=== PATIENT | female | born 1945 | race Caucasian/White ===

== ENCOUNTER 2018-04-20 13:48 | Emergency (ER) | payer MEDICARE, BC ==
[2018-04-20 14:13] LABS: #Lymphocytes 1.2 thou/uL (1.20-3.40); #Monocytes 0.4 thou/uL (0.11-0.59); %Basophils 0.7 % (0.0-1.0); %Eosinophils 0.8 % (0.0-10.0); %Lymphocytes 20.9 % (21.0-51.0); %Neutrophils 70.7 % (42.0-75.0); Hemoglobin 13.9 g/dL (12.0-16.0); Mean Corpuscular HGB CONC 32.3 g/dL (32.0-36.0); Mean Corpuscular Hemoglobin 29.8 pg (27.0-31.0); Mean Corpuscular Volume 92.1 fL (78.0-98.0); Mean Platelet Volume 7.8 fL (7.4-10.4); Platelet Count 137 thou/uL (130-400); RBC Distribution Width 11.5 % (11.5-14.5); Red Blood Cell (RBC) Count 4.67 mill/uL (4.20-5.40); White Blood Cell (WBC) Count 5.7 thou/uL (4.8-10.8)
[2018-04-20 14:29] LABS: ALT (SGPT) 20 U/L (8-55); AST (SGOT) 18 U/L (5-34); Albumin 4.3 g/dL (3.4-4.8); Alkaline Phosphatase 61 U/L (40-150); Anion Gap 14 mmol/L (10-20); BUN (Urea Nitrogen) 16 mg/dL (9.8-20.1); Bilirubin, Total 0.2 mg/dL (0.2-1.2); CK (CPK) 79 U/L (29-168); CKMB 1.8 ng/mL (0-6.6); Calc. Creatinine Clearance 0 mL/min (70-130); Calcium 9.3 mg/dL (7.8-10.44); Carbon Dioxide 26 mmol/L (23-31); Chloride 104 mmol/L (98-107); Estimated GFR-MDRD 82; Globulin 2.9 g/dL (2.4-3.5); Glucose 166 mg/dL (83-110); Lipase 20 U/L (8-78); Potassium 4.3 mmol/L (3.5-5.1); Protein, Total 7.2 g/dL (6.0-8.3); Sodium 140 mmol/L (136-145); Troponin I Less than 0.010 ng/mL (< 0.028)
--- NOTE | 2018-04-20 14:37 | CT ---
HEAD CT WITHOUT CONTRAST: Date: 04/20/18 HISTORY: Syncope. COMPARISON: None. TECHNIQUE: Noncontrast head CT is performed from skull base to skull vertex. FINDINGS: No parenchymal hemorrhage. No extra-axial hematoma. No midline shift. Basilar cisterns are patent. Br ain volume, age-appropriate. Cortical seals-white matter differentiation preserved. Ventricles and sul ci are patent and symmetric. Minimal chronic small vessel ischemic changes of white matter. Hypoatten uation involving the right caudate nucleus due to remote lacunar infarct. Calvarium is intact. Adequa te aeration of the sinuses and mastoid air cells. Cavernous carotid atherosclerosis is noted. IMPRESSION: No acute intracranial process. POS: [facility]
[2018-04-20] MEDS ORDERED: Ondansetron HCl/PF 4 MG/2 ML Vial ONE (14:39)
[2018-04-20] MEDS ORDERED: Meclizine HCl 25 MG TAB ONE (14:39)
[2018-04-20] MEDS ORDERED: Ketorolac Tromethamine 30 MG/ML VIAL ONE (14:39)
--- NOTE | 2018-04-20 14:39 | RAD ---
CHEST 1 VIEW: Date: 04/20/18 HISTORY: Pain. FINDINGS: Slight elongation of aorta. Normal cardiac silhouette. Pulmonary vessels and hilum are normal. No con solidation or mass. No pneumothorax or osseous abnormalities. Calcified granuloma in left lung base. IMPRESSION: No acute cardiopulmonary process. POS: [facility]
[2018-04-20 15:31] LABS: Bilirubin Negative (Negative); Blood, Urine Small (Negative); Glucose, Urine (Dipstick) Negative (Negative); Leukocyte Negative (Negative); Nitrite Negative (Negative); Protein, Urine (Dipstick) 30 mg/dL (Neg-Trace); Urobilinogen 0.2 mg/dL (0.2-1.0); pH, Urine 5.5 (5.0-9.0)
[2018-04-20 15:35] LABS: Clarity Hazy (Clear); Specific Gravity, Urine 1.026 (1.002-1.036)
[2018-04-20 15:39] LABS: Bacteria/HPF 1+ HPF (None Seen); WBC/HPF None Seen HPF (0-3)
[2018-04-20] MEDS ORDERED: Diazepam 5 MG TAB ONE (15:46)
== END 2018-04-20 16:34 | disposition home or self-care (01) ==
LOC: SCSER 13:48
DX: H81.13 Benign paroxysmal vertigo, bilateral (principal); L03.119 Cellulitis of unspecified part of limb; I25.2 Old myocardial infarction; I25.10 Atherosclerotic heart disease of native coronary artery without angina pectoris; F32.9 Major depressive disorder, single episode, unspecified
CPT/HCPCS: 70450; 71045; 80053; 81003; 81015; 82553; 83605; 83690; 84484; 85025; 87804; 93005; 96361; 96374; 96375; J1885; J2405

== ENCOUNTER 2019-01-28 12:40 | Inpatient (IN) | payer MEDICARE, BC ==
--- NOTE | 2019-01-28 14:52 | HP ---
HISTORY OF PRESENT ILLNESS: Ms. Salazar is a very pleasant 73-year-old woman who was admitted to the [facility] with chest pain and non-ST elevation myocardial infarction. She had a peak troponin of 0.33. She had no ST changes on her EKG. She has history of coronary artery disease status post multivessel stenting in 2010 after suffering a myocardial infarction. She has been followed by Dr. German since that time. She was admitted by Dr. Munoz and underwent cardiac catheterization today. Her last ventricular evaluation prior to admission was in 2011. The echo showing an ejection fraction of 60%. Catheterization today showing severe three-vessel disease involving the right coronary, LAD, and ramus intermedius. Bypassable targets included LAD, ramus intermedius, and distal right coronary artery. She is being transferred to Health system for coronary artery bypass grafting. PAST MEDICAL HISTORY: 1. Coronary artery disease, status post multivessel stenting in 2010. 2. Hypertension. 3. Dyslipidemia. 4. Mild obesity. 5. Anxiety. PAST SURGICAL HISTORY: 1. Appendectomy. 2. Hysterectomy. 3. Cataract removal. 4. Multivessel stenting involving the posterior lateral branch of the right coronary artery, circumflex coronary artery, and LAD in 2010. OUTPATIENT MEDICATIONS: 1. Aspirin 81 mg daily. 2. Zetia 10 mg at bedtime. 3. [place]-3 120 mg b.i.d. 4. Metoprolol tartrate 25 mg one q.a.m. 5. Diovan 80 mg daily. 6. Isosorbide mononitrate 30 mg daily. 7. Citalopram 20 mg daily. 8. CoQ10 200 mg daily. ALLERGIES: 1. PENICILLIN. 2. TETANUS. 3. LIVALO. THE PATIENT HAS HAD A COUGH REACTION TO LISINOPRIL IN THE PAST AND ALSO HAS HAD HEADACHE AND OTHER NON-MYALGIA TYPE REACTIONS TO SIMVASTATIN AND LIPITOR-INTERESTINGLY, SHE HAS BEEN ON LIPITOR SINCE ADMISSION IN THE HOSPITAL WITHOUT ANY ISSUE. REVIEW OF SYSTEMS: A 10-point review of systems is performed, is negative except as above. PHYSICAL EXAMINATION: GENERAL: This is moderately obese woman resting comfortably in bed. VITAL SIGNS: Height 5 feet 4 inches, weight 164 pounds. Pulse is 70 and regular. Blood pressure is 138/72, oxygen saturations 100% on room air. HEENT: Sclerae nonicteric. Pupils are equal and round bilaterally. NECK: Supple without bruit. CHEST: Clear bilaterally. HEART: Rhythm is regular without murmur. ABDOMEN: Soft and nontender. EXTREMITIES: No edema. VASCULAR: She has palpable carotid, radial, and femoral pulses bilaterally. Her left dorsalis and posterior tibial pulses are palpable and her right are dopplerable. ASSESSMENT AND PLAN: A 73-year-old woman with history of previous coronary event resulting in multivessel stenting, who re-presented with [id number] myocardial infarction. Previous ventricular evaluations have shown normal ventricular function. Coronary angiography today shows severe three-vessel disease with bypassable LAD, ramus, and distal right coronary targets. Risks, benefits, and options of coronary artery bypass grafting have been described to the patient and she is agreeable for transfer to Health system and to see Dr. Ellis in regard to surgery possibly on Monday. We will arrange for transfer and make plans from there. Job ID: [id number]
[2019-01-28 20:26] LABS: #Eosinphils 0.1 thou/uL (0.0-0.7); #Lymphocytes 2.1 thou/uL (1.20-3.40); #Monocytes 0.4 thou/uL (0.11-0.59); #Neutrophils 2.4 thou/uL (1.40-6.50); %Basophils 0.4 % (0.0-1.0); %Eosinophils 1.7 % (0.0-10.0); %Lymphocytes 42.2 % (21.0-51.0); %Monocytes 7.2 % (0.0-10.0); %Neutrophils 48.5 % (42.0-75.0); Hemoglobin 12.3 g/dL (12.0-16.0); Mean Corpuscular HGB CONC 33.4 g/dL (32.0-36.0); Mean Corpuscular Hemoglobin 31.7 pg (27.0-31.0); Mean Corpuscular Volume 94.9 fL (78.0-98.0); Mean Platelet Volume 7.7 fL (7.4-10.4); Platelet Count 141 thou/uL (130-400); RBC Distribution Width 10.8 % (11.5-14.5); Red Blood Cell (RBC) Count 3.88 mill/uL (4.20-5.40)
[2019-01-28 20:47] LABS: Anion Gap 13 mmol/L (10-20); BUN (Urea Nitrogen) 13 mg/dL (9.8-20.1); Calc. Creatinine Clearance 0 mL/min (70-130); Calcium 9.1 mg/dL (7.8-10.44); Carbon Dioxide 28 mmol/L (23-31); Chloride 104 mmol/L (98-107); Estimated GFR-MDRD 78; Glucose 140 mg/dL (83-110); Potassium 3.5 mmol/L (3.5-5.1); Sodium 141 mmol/L (136-145)
[2019-01-28] MEDS ORDERED: Ezetimibe 10 MG TAB PO SCH (23:15)
[2019-01-28] MEDS ORDERED: Metoprolol Tartrate 25 MG TAB PO SCH (23:15)
[2019-01-28] MEDS ORDERED: Atorvastatin Calcium 10 MG TAB PO SCH (23:15)
[2019-01-29] MEDS ORDERED: Norepinephrine 4 MG/4 ML VIAL ONE (05:58)
[2019-01-29] MEDS ORDERED: Fentanyl 250 MCG/5 ML VIAL ONE (05:58)
[2019-01-29] MEDS ORDERED: Nitroglycerin 50 MG/250 ML BOT 250 ML ONE (05:58)
[2019-01-29] MEDS ORDERED: Albumin 5% 0 ML ONE (06:29)
[2019-01-29] MEDS ORDERED: Vancomycin HCl 1 GM in Premix Bag 1 BAG IVPB SCH (06:45)
[2019-01-29] MEDS ORDERED: Heparin 10,000 UNITS/1 ML VIAL 30,000 UNITS in Sodium Chloride 0.9% 1,000 ML FS SCH (07:00)
[2019-01-29] MEDS ORDERED: Midazolam HCl 2 mg/2 ml Vial ONE (07:14)
[2019-01-29] MEDS ORDERED: Losartan 25 MG TAB PO SCH (09:00)
[2019-01-29] MEDS ORDERED: Metoprolol Tartrate 25 MG TAB PO SCH (09:00)
[2019-01-29] MEDS ORDERED: Insulin Regular 300 UNITS/3 ML VIAL ONE (09:50)
[2019-01-29] MEDS ORDERED: Vancomycin HCl 500 MG in Sodium Chloride 0.9% 100 ML IVPB SCH (10:00)
[2019-01-29] MEDS ORDERED: Nitroglycerin 50 MG/250 ML BOT 250 ML IVPB PRN (10:47)
[2019-01-29] MEDS ORDERED: Fentanyl 100 MCG/2 ML VIAL SLOW IVP PRN (10:47)
[2019-01-29] MEDS ORDERED: Promethazine HCl 25 MG/ML VIAL IM PRN (10:47)
[2019-01-29] MEDS ORDERED: hydrALAZINE 20 MG/ML VIAL SLOW IVP PRN (10:47)
[2019-01-29] MEDS ORDERED: Bisacodyl 10 MG SUPP PR PRN (10:47)
[2019-01-29] MEDS ORDERED: niCARdipine 25 MG in Sodium Chloride 0.9% 250 ML 250 ML IVPB PRN (10:47)
[2019-01-29] MEDS ORDERED: Acetaminophen 325 MG TAB PO PRN (10:47)
[2019-01-29] MEDS ORDERED: Morphine 2 MG/ML SYRINGE SLOW IVP PRN (10:47)
[2019-01-29] MEDS ORDERED: Post-Op Insulin Drip Protocol IVPB ONE (10:47)
[2019-01-29] MEDS ORDERED: Mag-Al 1200 mg/1200 mg/30 ML UDCUP PO PRN (10:47)
[2019-01-29] MEDS ORDERED: Guaifenesin DM 100-10/5 ML UDCUP PO PRN (10:47)
[2019-01-29] MEDS ORDERED: Bisacodyl 5 MG TAB PO PRN (10:47)
[2019-01-29] MEDS ORDERED: Hetastarch 6% 500 ML 500 ML IVPB PRN (10:47)
[2019-01-29] MEDS ORDERED: Ondansetron PF 4 MG/2 ML Vial IVP PRN (10:47)
[2019-01-29] MEDS ORDERED: Norepinephrine 8 MG/0.9% NS 250 ML IVPB PRN (10:47)
[2019-01-29] MEDS ORDERED: Insulin Regular 300 UNITS/3 ML VIAL SC PRN (12:16)
[2019-01-29] MEDS ORDERED: HUMULIN R 100 UNITS in Sodium Chloride 0.9% 100 ML IVPB SCH (12:16)
[2019-01-29] MEDS ORDERED: Dextrose 5% in Water 1,000 ML IV PRN (12:16)
[2019-01-29] MEDS ORDERED: Dextrose 50% Abboject 50 ML SYRINGE SLOW IVP PRN (12:16)
[2019-01-29] MEDS ORDERED: Midazolam HCl 5 mg/5 ml Vial ONE (12:26)
[2019-01-29 12:52] LABS: Base Excess (BEa) -1.4 mEq/L (-2.0 to +3.0); CO2 Tension 37.1 mmHg (35.0-45.0); Calcium, Ionized 1.05 mmol/L (1.12-1.30); Carboxyhemoglobin (COHb) 0.3 gm% (0.0-3.0); Hemoglobin (Hb) 10.2 g/dL (12.0-16.0); O2 Tension (PaO2) 120.8 mmHg (> 70.0); Potassium - ABG Lab 3.61 mmol/L (3.70-5.30); pH, Arterial 7.41 (7.35-7.45)
[2019-01-29 12:54] LABS: ALV-art Gradient 189.325 (0-20); Puncture Site ALINE
[2019-01-29 12:59] LABS: #Lymphocytes 2.2 thou/uL (1.20-3.40); #Monocytes 0.7 thou/uL (0.11-0.59); #Neutrophils 8.7 thou/uL (1.40-6.50); %Basophils 0.3 % (0.0-1.0); %Eosinophils 0.4 % (0.0-10.0); %Lymphocytes 18.6 % (21.0-51.0); %Neutrophils 74.8 % (42.0-75.0); Hemoglobin 9.8 g/dL (12.0-16.0); Mean Corpuscular Hemoglobin 31.4 pg (27.0-31.0); Mean Corpuscular Volume 92.2 fL (78.0-98.0); Mean Platelet Volume 7.4 fL (7.4-10.4); Platelet Count 133 thou/uL (130-400); RBC Distribution Width 10.7 % (11.5-14.5); Red Blood Cell (RBC) Count 3.12 mill/uL (4.20-5.40); White Blood Cell (WBC) Count 11.6 thou/uL (4.8-10.8)
[2019-01-29 13:05] LABS: INR-International Normal Ratio 1.3; Prothrombin Time 16.1 SEC (12.0-14.7)
[2019-01-29 13:06] LABS: PTT 30.5 SEC (22.9-36.1)
--- NOTE | 2019-01-29 13:06 | RAD ---
XR Chest 1 View Portable History: Open heart surgery Comparison: Radiograph 2018 Findings: Patient is intubated with endotracheal tube tip in good position. Mediastinal drains are pr esent. Small left effusion. No pneumothorax. Central venous catheter tip sits at the right atrium. Impression: Expected uncomplicated postoperative findings.
[2019-01-29 13:30] LABS: Anion Gap 12 mmol/L (10-20); BUN (Urea Nitrogen) 9 mg/dL (9.8-20.1); Calc. Creatinine Clearance 106 mL/min (70-130); Calcium 7.5 mg/dL (7.8-10.44); Carbon Dioxide 22 mmol/L (23-31); Chloride 110 mmol/L (98-107); Estimated GFR-MDRD Greater than 90; Glucose 209 mg/dL (83-110); Potassium 3.8 mmol/L (3.5-5.1); Sodium 140 mmol/L (136-145)
[2019-01-29] MEDS: Aspirin Chewable 81 MG TAB PO SCH (13:35)
[2019-01-29] MEDS: Sodium Chloride 0.9% 1,000 ML IV SCH ×2 (13:53→21:13)
[2019-01-29] MEDS: Ketorolac Tromethamine 30 MG/ML VIAL IVP SCH ×3 (13:54→23:36)
[2019-01-29] MEDS: Potassium Chloride 20 MEQ/100 ML PREMIX BAG IVPB PRN ×2 (14:16→21:12)
[2019-01-29] MEDS ORDERED: Calcium Chloride 1 GM/10 ML Abboject SYRINGE ONE (15:57)
[2019-01-29] MEDS ORDERED: Mannitol 12.5 GM/50 ML ONE (15:57)
[2019-01-29] MEDS ORDERED: Vecuronium 10 MG VIAL ONE (15:57)
[2019-01-29] MEDS ORDERED: Protamine Sulfate 250 MG/25 ML VIAL ONE (15:57)
[2019-01-29] MEDS ORDERED: Magnesium 5 GM/10 ML VIAL ONE (15:57)
[2019-01-29] MEDS ORDERED: Lidocaine 2% PF 100 mg/5 ml Syringe ONE (15:57)
[2019-01-29] MEDS ORDERED: PROPOFOL 200 MG/20 ML VIAL ONE (15:57)
[2019-01-29] MEDS ORDERED: Rocuronium Bromide 10 MG/ML (10ML VIAL) ONE (15:57)
[2019-01-29] MEDS ORDERED: Heparin 30,000 units/30 ml VIAL ONE (15:57)
[2019-01-29] MEDS ORDERED: Papaverine 60 MG/2 ML VIAL ONE (15:57)
[2019-01-29] MEDS ORDERED: Sodium Bicarb 50 MEQ/50 ML VIAL ONE (15:57)
[2019-01-29] MEDS ORDERED: Cardioplegic Soln 1,000 ML BAG ONE (15:57)
[2019-01-29] MEDS ORDERED: Potassium Chloride 60 MEQ/30 ML VIAL ONE (15:57)
[2019-01-29] MEDS ORDERED: Heparin 5,000 UNITS/ML VIAL ONE (15:57)
[2019-01-29] MEDS ORDERED: Succinylcholine Chloride 20 MG/ML 10 ml SYRINGE FS ONE (15:57)
[2019-01-29] MEDS ORDERED: Aminocaproic Acid 5 GM/20 ML VIAL ONE (15:57)
[2019-01-29] MEDS ORDERED: Thrombin 5000 UNITS/5 ML VIAL ONE (15:57)
--- NOTE | 2019-01-29 16:08 | OP ---
DATE OF PROCEDURE: 01/29/2019 PROCEDURES PERFORMED: Coronary artery bypass grafting x3 with left internal mammary artery to the distal left anterior descending and reverse greater saphenous vein graft from the aorta to the ramus intermedius and from the aorta to the PDA. PREOPERATIVE DIAGNOSES: Coronary artery disease, post infarction angina. POSTOPERATIVE DIAGNOSES: Coronary artery disease, post infarction angina. MYSQL DATABASE DEVELOPER: Will Jean Baptiste MD ANESTHESIA: General endotracheal anesthesia. INDICATIONS: The patient is a 73-year-old woman with a known history of coronary artery disease having undergone previous stenting of her LAD, ramus, and right coronary systems. She presented with episodes of chest pain and ruled in for myocardial infarction. Cardiac catheterization demonstrated a very high-grade ostial lesion in the ramus intermedius as well as significant disease in her LAD, right coronary system, and in a circumflex that terminated in a very small obtuse marginal. The night prior to planned surgical revascularization, she had two brief self-limited episodes of chest pain. FINDINGS: Good quality MARKUS and saphenous vein. Pump time 90 minutes. Cross-clamp time 36 minutes. The LAD was about a 1.5 mm diffusely diseased, poor quality vessel. The ramus intermedius was about 2.5 mm intramyocardial vessel with scattered plaque. The right coronary system and PDA were of poor quality and diffusely diseased. The PDA was grafted in its midportion was about 1 to 1.5 mm in diameter. Pericardium was loosely closed. NARRATIVE REPORT: After informed consent was obtained, the patient was taken to the operating room, placed in the supine position on the operating table. After the induction of general anesthesia, her greater saphenous vein in her left lower extremity was ultrasonographically mapped and marked, the right upper chest was prepped and draped in sterile fashion and she was placed in Trendelenburg. A triple-lumen central line kit was used to place a right subclavian line by the Seldinger technique. All 3 ports easily aspirated and flushed. The line was secured with suture and the patient's torso, groins, and lower extremities were prepped and draped in sterile fashion. Port incision was made just above the left knee, exposing the greater saphenous vein, and leaving a skin bridge similar to sized incision was made just below the knee to expose the vein distally as at that level. The vein was very superficial. It was then endoscopically harvested up to the groin using a stab incision for the proximal transection point. The vein was prepared for use as a graft and the 2 incisions about the knee were closed in layers of subcutaneous and subcuticular Vicryl. A median sternotomy was performed. Left internal mammary artery was mobilized as a skeletonized in-situ graft through an extrapleural exposure from the level of the xiphoid to the level of the subclavian vein. The patient was heparinized. The mammary was ligated and divided distally. There was good flow through the mammary which was instilled intraluminally with papaverine solution. The mammary bed was inspected for hemostasis. The MARKUS retractor was replaced with a Jovel retractor. The pericardium was opened and marsupialized. The aorta was palpated and was soft. A double concentric pursestring of 2-0 Ethibond was placed in the ascending aorta just beyond the pericardial reflection and a single pursestring was placed in the right atrial appendage. Aortic and venous cannulae were inserted and secured by their pursestrings. The plane between the aorta and the pulmonary artery was developed. Cardiopulmonary bypass was instituted and the patient was systemically cooled. The heart was examined and the vessel to be bypassed were identified. A longitudinal slit was made in the pericardium anterior to the left phrenic nerve through which the mammary could be passed. The aorta was cross clamped and cardioplegia was administered through an aortic root needle. When arrest achieved, attention was turned to the ramus. It was exposed and opened, where it was visible in its intra myocardial course adjacent to some patches of old scar. There was plaque visible there. Generous arteriotomy was made in the ramus to bridge across that island of plaque and reverse greater saphenous vein was anastomosed there end-to-side with running 6-0 Prolene suture and the anastomosis tested by flushing cold cardioplegia down the graft. Attention was then turned to the distal right coronary system. The PDA was exposed and opened in the midportion. However, emerged on the epicardial surface at the AV groove just beyond what appeared to represent a stent. The saphenous vein was anastomosed there end-to-side in a similar fashion. Attention was then turned to the LAD, was exposed and opened distally. A 1 mm probe could be passed proximally and distally. The mammary was spatulated and anastomosed to that arteriotomy end-to-side with running 7-0 Prolene and tacked to the epicardium. The aortic cross-clamp was replaced with a partial occluding clamp and aortotomy was made in the ascending aorta with a scalpel and punch. The PDA graft was brought along the right side of the heart and anastomosed to the more proximal aortotomy. The ramus graft was brought along the left side of the heart and anastomosed to the more distal aortotomy. Both proximal anastomoses were marked with small hemoclips. The partial occluding clamp was removed. The vein grafts were de-aired and the anastomoses were inspected for hemostasis. The posterior pericardial drain was brought out through a separate incision. Right atrial and right ventricular temporary epicardial pacing wires were placed. The patient was from cardiopulmonary bypass. Aortic and venous cannulae were removed and the pursestring secured. Protamine was administered. When hemostasis was adequate, an anterior mediastinal drain was placed and pericardial closure was initiated. The patient's hemodynamics sagged coincident with a tight closure and improved with atrial pacing and loosening that closure with the hemodynamic stabilized vancomycin paste and platelet rich GPS were applied to the cut surfaces of the sternum. The sternum was reapproximated with #7 stainless steel wires. The fascia was closed over the wires with heavy Vicryl. The soft tissues were treated with platelet poor GPS and the subcutaneous tissue reapproximated with 2-0 Vicryl. The skin closed with running 3-0 Vicryl subcuticular suture. The wounds were dressed and the patient was taken to the intensive care in stable condition. Job ID: [id number]
[2019-01-29] MEDS: Fentanyl 100 MCG/2 ML VIAL SLOW IVP PRN ×2 (18:30→23:42)
[2019-01-29 18:59] LABS: Hemoglobin 10.3 g/dL (12.0-16.0)
[2019-01-29 19:13] LABS: Potassium 3.9 mmol/L (3.5-5.1)
[2019-01-29] MEDS: HYDROcodone/Acetaminophen 5/325 mg Tablet PO PRN (21:10)
[2019-01-29] MEDS: Famotidine/PF 20 mg/2ml Vial SLOW IVP SCH (21:11)
[2019-01-29] MEDS: Atorvastatin Calcium 10 MG TAB PO SCH (21:12)
[2019-01-29] MEDS: Docusate 100 MG CAP PO SCH (21:12)
[2019-01-29] MEDS: Ezetimibe 10 MG TAB PO SCH (21:12)
[2019-01-30 04:42] LABS: #Basophils 0.1 thou/uL (0.0-0.2); #Lymphocytes 1.2 thou/uL (1.20-3.40); #Monocytes 0.4 thou/uL (0.11-0.59); #Neutrophils 5.3 thou/uL (1.40-6.50); %Basophils 0.7 % (0.0-1.0); %Eosinophils 0.1 % (0.0-10.0); %Lymphocytes 16.9 % (21.0-51.0); %Monocytes 6.3 % (0.0-10.0); Hemoglobin 8.9 g/dL (12.0-16.0); Mean Corpuscular Hemoglobin 32.7 pg (27.0-31.0); Mean Corpuscular Volume 96.1 fL (78.0-98.0); Mean Platelet Volume 7.8 fL (7.4-10.4); Platelet Count 95 thou/uL (130-400); Red Blood Cell (RBC) Count 2.71 mill/uL (4.20-5.40)
[2019-01-30 04:55] LABS: Anion Gap 7 mmol/L (10-20); BUN (Urea Nitrogen) 10 mg/dL (9.8-20.1); Calc. Creatinine Clearance 103 mL/min (70-130); Calcium 7.5 mg/dL (7.8-10.44); Carbon Dioxide 25 mmol/L (23-31); Chloride 112 mmol/L (98-107); Estimated GFR-MDRD Greater than 90; Glucose 117 mg/dL (83-110); Sodium 140 mmol/L (136-145)
[2019-01-30] MEDS: HYDROcodone/Acetaminophen 5/325 mg Tablet PO PRN ×4 (05:35→22:51)
[2019-01-30] MEDS: Ketorolac Tromethamine 30 MG/ML VIAL IVP SCH (05:36)
[2019-01-30] MEDS: Potassium Chloride 20 MEQ/100 ML PREMIX BAG IVPB PRN (05:36)
[2019-01-30] MEDS: Sodium Chloride 0.9% 1,000 ML IV SCH ×2 (06:58→17:18)
[2019-01-30 08:51] LABS: Actual Bicarbonate (HCO3a) 19.1 mEq/L (22-28); Base Excess (BEa) -4.8 mEq/L (-2.0 to +3.0); CO2 Tension 31.1 mmHg (35.0-45.0); Calcium, Ionized 0.98 mmol/L (1.12-1.30); Carboxyhemoglobin (COHb) 1.2 gm% (0.0-3.0); O2 Tension (PaO2) 88.2 mmHg (> 70.0); Potassium - ABG Lab 3.66 mmol/L (3.70-5.30); pH, Arterial 7.41 (7.35-7.45)
[2019-01-30 08:52] LABS: ALV-art Gradient 158.125 (0-20); Puncture Site ALINE
[2019-01-30] MEDS: Aspirin Chewable 81 MG TAB PO SCH (08:57)
[2019-01-30] MEDS: Famotidine/PF 20 mg/2ml Vial SLOW IVP SCH ×2 (08:57→19:34)
[2019-01-30] MEDS: Docusate 100 MG CAP PO SCH ×2 (08:57→19:34)
[2019-01-30 09:27] LABS: Actual Bicarbonate (HCO3a) 23.4 mEq/L (22-28); Analyzer IN Cardio OR; Base Excess (BEa) -0.9 mEq/L (-2.0 to +3.0); CO2 Tension 37.2 mmHg (35.0-45.0); Calcium, Ionized 1.04 mmol/L (1.12-1.30); Carboxyhemoglobin (COHb) 0.2 gm% (0.0-3.0); Hemoglobin (Hb) 11.2 g/dL (12.0-16.0); Potassium - ABG Lab 3.73 mmol/L (3.70-5.30); pH, Arterial 7.42 (7.35-7.45)
[2019-01-30 09:27] LABS: Actual Bicarbonate (HCO3a) 22.8 mEq/L (22-28); Analyzer IN Cardio OR; Base Excess (BEa) -0.8 mEq/L (-2.0 to +3.0); CO2 Tension 34.4 mmHg (35.0-45.0); Calcium, Ionized 1.03 mmol/L (1.12-1.30); Carboxyhemoglobin (COHb) 0.8 gm% (0.0-3.0); Hemoglobin (Hb) 11.5 g/dL (12.0-16.0); O2 Tension (PaO2) 473.7 mmHg (> 70.0); Potassium - ABG Lab 3.37 mmol/L (3.70-5.30); pH, Arterial 7.44 (7.35-7.45)
--- NOTE | 2019-01-30 09:27 | RAD ---
PORTABLE CHEST: Date: 01/30/19 HISTORY: Postop open heart surgery. COMPARISON: Prior day's exam. FINDINGS: There has been interval removal of the endotracheal tube. Chest tubes remain in place. Right subclavi an line is unchanged in position. Lungs remain clear of infiltrates. IMPRESSION: Interval removal of endotracheal tube. Otherwise stable chest. POS: [facility]
[2019-01-30 09:28] LABS: Actual Bicarbonate (HCO3a) 22.7 mEq/L (22-28); Analyzer IN Cardio OR; Base Excess (BEa) -1.9 mEq/L (-2.0 to +3.0); CO2 Tension 37.8 mmHg (35.0-45.0); Calcium, Ionized 0.95 mmol/L (1.12-1.30); Carboxyhemoglobin (COHb) 0.4 gm% (0.0-3.0); Hemoglobin (Hb) 8.6 g/dL (12.0-16.0); O2 Tension (PaO2) 375.3 mmHg (> 70.0)
[2019-01-30 09:28] LABS: Actual Bicarbonate (HCO3v) 21 mEq/L (22-28); Analyzer IN Cardio OR; Base Excess -3.6 mEq/L (-2.0 to +3.0); Calcium, Ionized 0.95 mmol/L (1.16-1.32); Chloride (ABG LAB) 101 mmol/L (98-106); Hemoglobin (Hb) 8.4 g/dL (11.7-16.1); Potassium - ABG Lab 4.41 mmol/L (3.70-5.30); Sodium 129.1 mmol/L (133-146); pH (venous) 7.36 (7.32-7.43)
[2019-01-30 09:29] LABS: Actual Bicarbonate (HCO3a) 22.8 mEq/L (22-28); Analyzer IN Cardio OR; Base Excess (BEa) -2.3 mEq/L (-2.0 to +3.0); CO2 Tension 40.6 mmHg (35.0-45.0); Calcium, Ionized 0.98 mmol/L (1.12-1.30); Carboxyhemoglobin (COHb) 0.4 gm% (0.0-3.0); Hemoglobin (Hb) 8.8 g/dL (12.0-16.0); O2 Tension (PaO2) 385.1 mmHg (> 70.0); Potassium - ABG Lab 4.44 mmol/L (3.70-5.30); pH, Arterial 7.37 (7.35-7.45)
[2019-01-30 09:29] LABS: Actual Bicarbonate (HCO3a) 19.8 mEq/L (22-28); Analyzer IN Cardio OR; Base Excess (BEa) -4.2 mEq/L (-2.0 to +3.0); Calcium, Ionized 1.07 mmol/L (1.12-1.30); Carboxyhemoglobin (COHb) 0.2 gm% (0.0-3.0); Hemoglobin (Hb) 8.9 g/dL (12.0-16.0); O2 Tension (PaO2) 251.2 mmHg (> 70.0); pH, Arterial 7.41 (7.35-7.45)
[2019-01-30 09:29] LABS: Puncture Site ALINE
[2019-01-30 09:30] LABS: Puncture Site ALINE
[2019-01-30 09:30] LABS: Puncture Site ALINE
[2019-01-30 09:31] LABS: Puncture Site ALINE
[2019-01-30 09:31] LABS: Puncture Site ALINE
--- NOTE | 2019-01-30 13:21 | EKG ---
Test Reason : POST CABG Blood Pressure : / mmHG Vent. Rate : 075 BPM Atrial Rate : 075 BPM P-R Int : 162 ms QRS Dur : 090 ms QT Int : 510 ms P-R-T Axes : 062 -15 -12 degrees QTc Int : 569 ms Normal sinus rhythm Low voltage QRS Inferior infarct , age undetermined Prolonged QT Abnormal ECG When compared with ECG of 20-APR-2018 14:04, Inverted T waves have replaced nonspecific T wave abnormality in Inferior leads QT has lengthened Confirmed by CHOLO PAULA (2) on 01/30/2019 1:21:02 PM Referred By: CHRIS Confirmed By:CHOLO PAULA
[2019-01-30] MEDS: Atorvastatin Calcium 10 MG TAB PO SCH (19:34)
[2019-01-30] MEDS: Ezetimibe 10 MG TAB PO SCH (19:34)
--- NOTE | 2019-01-31 03:02 | CON ---
DATE OF CONSULTATION: HISTORY OF PRESENT ILLNESS: Ary Ordoñez is a very pleasant 73-year-old female. She underwent coronary bypass grafting yesterday, was weaned per protocol. She has walked today. She is sitting in a chair when I evaluated her. She still had her chest tubes in place. She is in no distress. PAST MEDICAL HISTORY: Remarkable for, 1. Coronary artery stenting in 2011 after myocardial infarction. 2. History of normal ejection fraction. 3. History of hypertension. 4. Lipid disorder. 5. History of anxiety. 6. History of appendectomy. 7. Status post hysterectomy. 8. History of cataract surgery. MEDICATIONS: Prior to admission, she is on, 1. Aspirin. 2. Zetia. 3. Metoprolol. 4. Diovan. 5. ISMO. 6. Citalopram. FAMILY HISTORY: Negative for lung disease in early age. ALLERGIES: SHE REPORTS ALLERGIES TO PENICILLIN AND TETANUS AND JAMEEL INHIBITOR OF COUGH. SHE HAS ALSO HAD MYALGIAS WITH SIMVASTATIN AND LIPITOR, BUT SHE IS ON LIPITOR APPARENTLY IN THE HOSPITAL WITH NO ISSUES. REVIEW OF SYSTEMS: Ten points negative. She says she is surprised how well she feels. PHYSICAL EXAMINATION: GENERAL: She is in no distress. She actually looks absolutely healthy if she did not have a chest tube in place. VITAL SIGNS: Heart rates in the 80s, blood pressure 99/72, respiratory rate is 19, oximetry is 100%. HEENT: Pupils are equal. Sclerae anicteric. NECK: Supple. LUNGS: Clear. HEART: Regular rhythm. S1 and S2 are normal. ABDOMEN: Soft and nontender. EXTREMITIES: Without clubbing, cyanosis, or edema. NEUROLOGIC: Nonfocal. LABORATORY DATA: Intake and output, positive 1361. White count 7, hemoglobin 8.9, platelets 95,000. Sodium 140, potassium 4, chloride 112, bicarb 25, BUN 10, creatinine 0.6. IMPRESSION: Status post coronary artery bypass grafting, clinically stable. Hopefully, she will be a candidate to move out of Critical Care Unit in the morning. Job ID: [id number]
[2019-01-31] MEDS: HYDROcodone/Acetaminophen 5/325 mg Tablet PO PRN ×4 (03:32→19:53)
[2019-01-31 04:53] LABS: #Lymphocytes 1.4 thou/uL (1.20-3.40); #Monocytes 0.6 thou/uL (0.11-0.59); #Neutrophils 3.6 thou/uL (1.40-6.50); %Basophils 0.2 % (0.0-1.0); %Eosinophils 0.5 % (0.0-10.0); %Lymphocytes 24.2 % (21.0-51.0); %Monocytes 10.7 % (0.0-10.0); %Neutrophils 64.4 % (42.0-75.0); Mean Corpuscular HGB CONC 33.2 g/dL (32.0-36.0); Mean Corpuscular Hemoglobin 32.2 pg (27.0-31.0); Mean Platelet Volume 8.1 fL (7.4-10.4); Platelet Count 81 thou/uL (130-400); RBC Distribution Width 11.4 % (11.5-14.5); Red Blood Cell (RBC) Count 2.48 mill/uL (4.20-5.40); White Blood Cell (WBC) Count 5.7 thou/uL (4.8-10.8)
[2019-01-31 05:08] LABS: Anion Gap 10 mmol/L (10-20); BUN (Urea Nitrogen) 9 mg/dL (9.8-20.1); Calc. Creatinine Clearance 95 mL/min (70-130); Calcium 7.9 mg/dL (7.8-10.44); Carbon Dioxide 23 mmol/L (23-31); Chloride 109 mmol/L (98-107); Estimated GFR-MDRD Greater than 90; Glucose 109 mg/dL (83-110); Potassium 4.1 mmol/L (3.5-5.1); Sodium 138 mmol/L (136-145)
[2019-01-31] MEDS ORDERED: Digoxin 0.5 MG/2 ML AMP ONE (07:47)
[2019-01-31] MEDS ORDERED: Digoxin 0.5 MG/2 ML AMP SLOW IVP SCH (08:00)
[2019-01-31] MEDS ORDERED: Amiodarone 150 MG in Dextrose 5% in Water 100 ML IVPB SCH (08:00)
--- NOTE | 2019-01-31 08:21 | RAD ---
Chest one view HISTORY: Heart surgery. Follow-up. COMPARISON: 01/30/2019. FINDINGS: Cardiac silhouette is magnified by projection. Pulmonary vasculature is unremarkable. Media stinum is midline with postoperative changes and aortic calcification. Right subclavian central venous catheter remains in place. Calcified granuloma at the left lung base. No lobar consolidation o r evidence of pneumothorax. sales operations leads overlie the chest. IMPRESSION: Stable postoperative appearance of the chest.
[2019-01-31] MEDS: Sodium Chloride 0.9% 1,000 ML IV SCH (08:54)
[2019-01-31] MEDS: Amiodarone 450 MG in Dextrose 5% in Water 250 ML IVPB SCH ×2 (08:55→19:48)
[2019-01-31] MEDS: Aspirin Chewable 81 MG TAB PO SCH (09:01)
[2019-01-31] MEDS: Famotidine/PF 20 mg/2ml Vial SLOW IVP SCH (09:01)
[2019-01-31] MEDS: Docusate 100 MG CAP PO SCH ×2 (09:01→21:31)
--- NOTE | 2019-01-31 11:16 | PRG ---
DATE OF SERVICE: 01/31/2019 SUBJECTIVE: Ary Salazar has no new complaints. She had a brief periods of atrial fibrillation. She says she could feel this morning. She is back in sinus rhythm. She is being loaded with amiodarone. OBJECTIVE: VITAL SIGNS: Heart rate is 90. Blood pressure 134/102, earlier it was 154/93. Respiratory rate is 18, oximetry is 100%. LUNGS: Clear. HEART: Regular rhythm. S1 and S2 are normal. ABDOMEN: Soft. EXTREMITIES: Without edema. LABORATORY DATA: White count 5.7, hemoglobin 8.0, platelets 81. Sodium 138, potassium 4.1, chloride 109, bicarb 22, BUN 9, creatinine 0.6. IMPRESSION: 1. Status post coronary artery bypass grafting, clinically stable. 2. Atrial fibrillation, transient, now being loaded with amiodarone. We will continue to follow with the other physicians caring for. Job ID: [id number]
[2019-01-31] MEDS ORDERED: Nitroglycerin 0.4 MG TAB (25 Tab Bottle) SL PRN (12:04)
[2019-01-31] MEDS ORDERED: diphenhydrAMINE 25 MG CAP PO PRN (12:04)
[2019-01-31] MEDS ORDERED: Guaifenesin DM 100-10/5 ML UDCUP PO PRN (12:04)
[2019-01-31] MEDS ORDERED: Mag-Al 1200 mg/1200 mg/30 ML UDCUP PO PRN (12:04)
[2019-01-31] MEDS ORDERED: Bisacodyl 5 MG TAB PO PRN (12:04)
[2019-01-31] MEDS ORDERED: Furosemide 40 MG/4 ML VIAL SLOW IVP SCH (12:04)
[2019-01-31] MEDS ORDERED: Mineral Oil ENEMA PR PRN (12:04)
[2019-01-31] MEDS ORDERED: Zolpidem Tartrate 5 MG TAB PO PRN (12:04)
[2019-01-31] MEDS ORDERED: Artificial Tears 18 DROP/0.9 ML EA EYE PRN (12:04)
[2019-01-31] MEDS ORDERED: Bisacodyl 10 MG SUPP PR PRN (12:04)
[2019-01-31] MEDS ORDERED: Metoprolol Tartrate 25 MG TAB PO SCH (21:00)
[2019-01-31] MEDS ORDERED: Sodium Chloride 0.9% 10 ML ONE (21:10)
[2019-01-31] MEDS: Ezetimibe 10 MG TAB PO SCH (21:31)
[2019-01-31] MEDS: Iron Polysaccharides Complex 150 MG CAP PO SCH (21:31)
[2019-01-31] MEDS: Atorvastatin Calcium 10 MG TAB PO SCH (21:31)
[2019-02-01] MEDS: HYDROcodone/Acetaminophen 5/325 mg Tablet PO PRN ×4 (00:17→20:14)
[2019-02-01 04:55] LABS: #Lymphocytes 1.3 thou/uL (1.20-3.40); #Monocytes 0.5 thou/uL (0.11-0.59); #Neutrophils 4.5 thou/uL (1.40-6.50); %Basophils 0.3 % (0.0-1.0); %Eosinophils 0.6 % (0.0-10.0); %Neutrophils 71.1 % (42.0-75.0); Hemoglobin 8.5 g/dL (12.0-16.0); Mean Corpuscular HGB CONC 33.8 g/dL (32.0-36.0); Mean Corpuscular Hemoglobin 32.4 pg (27.0-31.0); Mean Corpuscular Volume 95.9 fL (78.0-98.0); Platelet Count 103 thou/uL (130-400); RBC Distribution Width 11.2 % (11.5-14.5); Red Blood Cell (RBC) Count 2.61 mill/uL (4.20-5.40); White Blood Cell (WBC) Count 6.3 thou/uL (4.8-10.8)
[2019-02-01 05:02] VITALS: BMI 31.9
[2019-02-01 05:09] LABS: Anion Gap 9 mmol/L (10-20); BUN (Urea Nitrogen) 9 mg/dL (9.8-20.1); Calc. Creatinine Clearance 104 mL/min (70-130); Calcium 8.3 mg/dL (7.8-10.44); Carbon Dioxide 28 mmol/L (23-31); Chloride 104 mmol/L (98-107); Estimated GFR-MDRD 88; Glucose 133 mg/dL (83-110); Potassium 4.3 mmol/L (3.5-5.1); Sodium 137 mmol/L (136-145)
--- NOTE | 2019-02-01 07:55 | RAD ---
XR Chest 1 View Portable History: Open-heart surgery Comparison: Radiograph prior day Findings: Subclavian central venous catheter is similar. Multiple midline sternotomy wires. Low-grade pulmonary venous congestion and small effusions. Calcified granuloma left lung base. No pneumothorax. Mediastinal drains persist. Impression: Unchanged examination of the chest.
[2019-02-01] MEDS ORDERED: Metolazone 5 MG TAB PO SCH (08:30)
[2019-02-01] MEDS: Aspirin Chewable 81 MG TAB PO SCH (08:53)
[2019-02-01] MEDS: Docusate 100 MG CAP PO SCH ×2 (08:54→20:14)
[2019-02-01] MEDS ORDERED: Furosemide 20 MG TAB PO SCH (09:00)
[2019-02-01] MEDS: Amiodarone 200 MG TAB PO SCH ×2 (09:01→20:15)
[2019-02-01] MEDS: Furosemide 40 MG TAB PO SCH ×2 (09:01→13:27)
[2019-02-01] MEDS: Iron Polysaccharides Complex 150 MG CAP PO SCH ×2 (09:43→20:15)
[2019-02-01] MEDS: Potassium Chloride 20 MEQ TAB PO SCH (16:18)
--- NOTE | 2019-02-01 16:41 | PRG ---
DATE OF SERVICE: 02/01/2019 SUBJECTIVE: Ms. Ordoñez is doing well. She has no complaints. She says she is ambulating in the [place] with minimal difficulty. Her chest tubes are all out. OBJECTIVE: VITAL SIGNS: Her heart rate is in the 80s, blood pressure is 138/66. She is still in sinus rhythm. She is afebrile. LUNGS: Clear. HEART: Regular rhythm. ABDOMEN: Soft. Her sternal incision looks good. EXTREMITIES: Without edema. LABORATORY DATA: Hemoglobin is 8.5, white count is 6.3, platelets are 103,000. BUN is 9, creatinine is 0.66. Electrolytes are otherwise unremarkable. IMPRESSION AND PLAN: Status post coronary artery bypass grafting, clinically doing well. We will follow from a distance. Job ID: [id number]
[2019-02-01] MEDS: Atorvastatin Calcium 10 MG TAB PO SCH (20:14)
[2019-02-01] MEDS: Ezetimibe 10 MG TAB PO SCH (20:15)
[2019-02-02] MEDS: HYDROcodone/Acetaminophen 5/325 mg Tablet PO PRN ×4 (02:33→20:23)
[2019-02-02 05:31] LABS: Hemoglobin 8.9 g/dL (12.0-16.0); Mean Corpuscular HGB CONC 33.9 g/dL (32.0-36.0); Mean Corpuscular Hemoglobin 32.2 pg (27.0-31.0); Platelet Count 162 thou/uL (130-400); RBC Distribution Width 11.2 % (11.5-14.5); Red Blood Cell (RBC) Count 2.77 mill/uL (4.20-5.40); White Blood Cell (WBC) Count 5.5 thou/uL (4.8-10.8)
[2019-02-02 05:32] LABS: #Eosinphils 0.1 thou/uL (0.0-0.7); #Lymphocytes 1.4 thou/uL (1.20-3.40); #Monocytes 0.5 thou/uL (0.11-0.59); #Neutrophils 3.5 thou/uL (1.40-6.50); %Basophils 0.4 % (0.0-1.0); %Eosinophils 1.1 % (0.0-10.0); %Lymphocytes 25.4 % (21.0-51.0); %Monocytes 9.7 % (0.0-10.0); %Neutrophils 63.4 % (42.0-75.0); Mean Platelet Volume 7.8 fL (7.4-10.4)
[2019-02-02 06:00] LABS: Anion Gap 11 mmol/L (10-20); BUN (Urea Nitrogen) 9 mg/dL (9.8-20.1); Calc. Creatinine Clearance 98 mL/min (70-130); Calcium 8.8 mg/dL (7.8-10.44); Carbon Dioxide 34 mmol/L (23-31); Chloride 99 mmol/L (98-107); Estimated GFR-MDRD 88; Glucose 117 mg/dL (83-110); Potassium 3.6 mmol/L (3.5-5.1); Sodium 140 mmol/L (136-145)
--- NOTE | 2019-02-02 08:03 | RAD ---
EXAM: Portable chest PROVIDED CLINICAL HISTORY: Postop COMPARISON: 02/01/2019 FINDINGS: Significant interval change with respect to the prior examination is not apparent. IMPRESSION: As above.
[2019-02-02] MEDS: Amiodarone 200 MG TAB PO SCH ×2 (09:14→20:25)
[2019-02-02] MEDS: Potassium Chloride 20 MEQ TAB PO SCH ×2 (09:14→16:37)
[2019-02-02] MEDS: Aspirin Chewable 81 MG TAB PO SCH (09:14)
[2019-02-02] MEDS: Furosemide 40 MG TAB PO SCH ×2 (09:15→13:15)
[2019-02-02] MEDS: Iron Polysaccharides Complex 150 MG CAP PO SCH ×2 (09:15→20:22)
[2019-02-02] MEDS: Docusate 100 MG CAP PO SCH ×2 (09:15→20:25)
[2019-02-02] MEDS: Ezetimibe 10 MG TAB PO SCH (20:24)
[2019-02-02] MEDS: Metoprolol Tartrate 50 MG TAB PO SCH (20:25)
[2019-02-02] MEDS: Atorvastatin Calcium 10 MG TAB PO SCH (20:25)
[2019-02-03] MEDS: HYDROcodone/Acetaminophen 5/325 mg Tablet PO PRN ×2 (01:46→09:21)
[2019-02-03 04:58] LABS: #Basophils 0.1 thou/uL (0.0-0.2); #Eosinphils 0.1 thou/uL (0.0-0.7); #Lymphocytes 2.2 thou/uL (1.20-3.40); #Monocytes 0.6 thou/uL (0.11-0.59); #Neutrophils 2.9 thou/uL (1.40-6.50); %Basophils 0.9 % (0.0-1.0); %Eosinophils 1.6 % (0.0-10.0); %Lymphocytes 36.9 % (21.0-51.0); %Monocytes 10.6 % (0.0-10.0); %Neutrophils 49.9 % (42.0-75.0); Hemoglobin 9.6 g/dL (12.0-16.0); Mean Corpuscular HGB CONC 33.9 g/dL (32.0-36.0); Mean Corpuscular Hemoglobin 32.7 pg (27.0-31.0); Mean Corpuscular Volume 96.5 fL (78.0-98.0); Platelet Count 218 thou/uL (130-400); RBC Distribution Width 11.2 % (11.5-14.5); Red Blood Cell (RBC) Count 2.92 mill/uL (4.20-5.40); White Blood Cell (WBC) Count 5.9 thou/uL (4.8-10.8)
[2019-02-03 05:11] LABS: Anion Gap 13 mmol/L (10-20); BUN (Urea Nitrogen) 13 mg/dL (9.8-20.1); Calc. Creatinine Clearance 94 mL/min (70-130); Calcium 9.1 mg/dL (7.8-10.44); Carbon Dioxide 32 mmol/L (23-31); Chloride 96 mmol/L (98-107); Estimated GFR-MDRD 83; Glucose 124 mg/dL (83-110); Potassium 3.6 mmol/L (3.5-5.1); Sodium 137 mmol/L (136-145)
[2019-02-03 07:26] VITALS: TEMP 98.2
[2019-02-03] MEDS ORDERED: Valsartan 80 MG TAB PO SCH (09:00)
[2019-02-03] MEDS: Amiodarone 200 MG TAB PO SCH (09:20)
[2019-02-03] MEDS: Aspirin Chewable 81 MG TAB PO SCH (09:20)
[2019-02-03] MEDS: Metoprolol Tartrate 50 MG TAB PO SCH (09:20)
[2019-02-03] MEDS: Potassium Chloride 20 MEQ TAB PO SCH (09:20)
[2019-02-03] MEDS: Docusate 100 MG CAP PO SCH (09:20)
[2019-02-03] MEDS: Iron Polysaccharides Complex 150 MG CAP PO SCH (09:20)
[2019-02-03 12:44] VITALS: BP 143/74
--- NOTE | 2019-02-04 04:27 | DIS ---
DATE OF ADMISSION: 01/28/2019 DATE OF DISCHARGE: 02/03/2019 PRINCIPAL DIAGNOSIS: Coronary artery disease with non-ST elevation myocardial infarction. SECONDARY DIAGNOSES: Atrial fibrillation and hypertension. PROCEDURES PERFORMED: Coronary artery bypass grafting x3 with left internal mammary artery to the distal LAD and separate reverse greater saphenous vein graft from aorta to the ramus intermedius and from the aorta to the PDA on 01/29/2019. HISTORY OF PRESENT ILLNESS AND HOSPITAL COURSE: The patient is a 73-year-old hypertensive woman with known coronary artery disease, who has had previous stenting in her LAD, ramus intermedius and right coronary system. She awoke with chest pain and had another episode later on that morning and presented to [facility], where she ruled in for myocardial infarction. Cardiac catheterization demonstrated high-grade lesions in her right coronary with ostium of her ramus intermedius, more modest but long lesion in the mid LAD. She had good LV function by echocardiography. She was transferred to [facility] and underwent coronary artery bypass grafting. She was extubated in the evening of surgery, but remain on low-dose Levophed through the afternoon of postoperative day #1. She was transferred out of the intensive care unit on postoperative day #2 and started on low-dose Lopressor. Shortly after rounding on her that morning, she went into atrial fibrillation with heart rates in the 130 to 150 range and orders were given for IV digoxin and IV amiodarone. She converted with the digoxin prior to administration of amiodarone. She was loaded with amiodarone and then switched over to 200 mg p.o. b.i.d. the following day and her beta blockade was gradually increased up to 50 mg b.i.d. At the end of her hospital stay, she was advanced on her afterload reduction with good blood pressure after 80 mg dose of Diovan, which had been listed as her home medication. Now receiving information that she actually takes olmesartan 40 mg a day, which will be continued at discharge. Her Lopressor has been changed from 25 mg b.i.d. to 50 mg b.i.d. She is to resume her home dose of Zetia. She tolerated low-dose Lipitor that was started prior to her transfer and that will be continued at 10 mg a day, baby aspirin, and the remainder of her home medications. I will plan on seeing her in the office in about 2 weeks. She has been given a prescription for Vicodin as needed for pain. Job ID: [id number]
[2019-02-04] MEDS ORDERED: Valsartan 80 MG TAB PO SCH (09:00)
== END 2019-02-03 13:09 | disposition home or self-care (01) | DRG 235 ==
LOC: 2NO 19:32 → CCU 01-29 07:16 → 2NO 01-31 13:13
PROVIDERS: ADMIT Thoracic Surgery (Cardiothoracic Vascular Surgery); ATTEND Thoracic Surgery (Cardiothoracic Vascular Surgery)
PROC: 021 Heart and Great Vessels, Bypass (ICD-10-PCS; principal; 2019-01-28)
PROC: 02104Z9 Bypass Coronary Artery, One Artery from Left Internal Mammary, Percutaneous Endoscopic Approach (ICD-10-PCS; 2019-01-28)
PROC: 06BQ3ZZ Excision of Left Saphenous Vein, Percutaneous Approach (ICD-10-PCS; 2019-01-28)
DX: I25.119 Atherosclerotic heart disease of native coronary artery with unspecified angina pectoris (principal); I21.4 Non-ST elevation (NSTEMI) myocardial infarction; I10 Essential (primary) hypertension; E78.5 Hyperlipidemia, unspecified; F41.9 Anxiety disorder, unspecified; E66.9 Obesity, unspecified; I48.91 Unspecified atrial fibrillation; Z90.49 Acquired absence of other specified parts of digestive tract; Z90.710 Acquired absence of both cervix and uterus; Z95.5 Presence of coronary angioplasty implant and graft; Z88.0 Allergy status to penicillin; Z88.7 Allergy status to serum and vaccine; Z88.8 Allergy status to other drugs, medicaments and biological substances; Z68.29 Body mass index [BMI] 29.0-29.9, adult
CPT/HCPCS: 36415; 36416; 36430; 71045; 80048; 82805; 84132; 85014; 85018; 85025; 85610; 85730; 86850; 86900; 86901; 93005; 93010; 93798; 94002; 94150; J0282; J1160; J1642; J1644; J1815; J1885; J1940; J2001; J2150; J2250; J2405; J2440; J2704; J2720; J3010; J3370; J3475; J3480; J3490; J7050; J7070; P9045; Q0163; S0017; S0028

== ENCOUNTER 2019-07-04 12:21 | Outpatient (CLI) | payer MEDICARE, BC ==
--- NOTE | 2019-07-04 12:44 | RAD ---
EXAM: Chest Two Views 07/04/2019 12:40 PM HISTORY: History of triple bypass with shortness of breath COMPARISON: April 22, 2019 FINDINGS: Heart: Stable mild cardiomegaly Pulmonary vessels: There is mild pulmonary vascular congestion and mild interstitial edema. Costophrenic angles: There are tiny pleural effusions Lungs: There is a calcified granuloma in the left lower lobe. Pneumothorax: None. Osseous structures:Intact. Additional findings: None. IMPRESSION: Findings suspicious for mild CHF.
== END 2019-07-04 12:22 | disposition home or self-care (01) ==
LOC: SCSRAD 12:21
PROVIDERS: ATTEND Family Medicine
DX: R06.02 Shortness of breath (principal)
CPT/HCPCS: 71046

== ENCOUNTER 2019-08-09 12:12 | Inpatient (IN) | payer MEDICARE, BC ==
[~2019-08-09 12:12] MED LIST: Magnevist 469MG/ML 20 ML VIAL ONE
[2019-08-09 13:16] LABS: #Eosinphils 0.1 thou/uL (0.0-0.7); #Monocytes 0.3 thou/uL (0.11-0.59); %Eosinophils 2.1 % (0.0-10.0); %Lymphocytes 44.1 % (21.0-51.0); %Monocytes 7.1 % (0.0-10.0); %Neutrophils 45.6 % (42.0-75.0); Hemoglobin 11.6 g/dL (12.0-16.0); Mean Corpuscular HGB CONC 31.8 g/dL (32.0-36.0); Mean Corpuscular Hemoglobin 30.3 pg (27.0-31.0); Mean Corpuscular Volume 95.2 fL (78.0-98.0); Mean Platelet Volume 8.2 fL (7.4-10.4); Platelet Count 159 thou/uL (130-400); RBC Distribution Width 11.9 % (11.5-14.5); Red Blood Cell (RBC) Count 3.84 mill/uL (4.20-5.40); White Blood Cell (WBC) Count 4.4 thou/uL (4.8-10.8)
[2019-08-09 13:23] LABS: INR-International Normal Ratio 1.1; PTT 31.5 SEC (22.9-36.1); Prothrombin Time 13.9 SEC (12.0-14.7)
--- NOTE | 2019-08-09 13:28 | CT ---
CT OF THE BRAIN WITHOUT CONTRAST: Date: 08/09/2019 COMPARISON: 04/20/18. HISTORY: Vision changes in left eye/blindness. TECHNIQUE: Multiple contiguous axial images were obtained in a CT of the brain without contrast. FINDINGS: There are scattered hypodensities in the subcortical and periventricular white matter, likely seconda ry to small vessel ischemic disease. No large confluent infarction is seen. There is no evidence of h ydrocephalus, intracranial hemorrhage, or extra-axial fluid collection. The calvarium and overlying soft tissues are unremarkable. The visualized paranasal sinuses and masto id air cells are well aerated. IMPRESSION: No evidence of acute intracranial abnormality. POS: [facility]
[2019-08-09 13:45] LABS: ALT (SGPT) 25 U/L (8-55); AST (SGOT) 22 U/L (5-34); Albumin 3.7 g/dL (3.4-4.8); Alkaline Phosphatase 77 U/L (40-110); Anion Gap 10 mmol/L (10-20); BUN (Urea Nitrogen) 12 mg/dL (9.8-20.1); Bilirubin, Total 0.3 mg/dL (0.2-1.2); Calc. Creatinine Clearance 0 mL/min (70-130); Calcium 8.6 mg/dL (7.8-10.44); Carbon Dioxide 31 mmol/L (23-31); Chloride 106 mmol/L (98-107); Estimated GFR-MDRD 72; Globulin 2.1 g/dL (2.4-3.5); Glucose 108 mg/dL (83-110); Potassium 4.5 mmol/L (3.5-5.1); Protein, Total 5.8 g/dL (6.0-8.3); Sodium 142 mmol/L (136-145)
[2019-08-09] MEDS ORDERED: Aspirin Chewable 81 MG TAB ONE (16:13)
--- NOTE | 2019-08-09 17:30 | MRI ---
MRI OF BRAIN WITH AND WITHOUT IV CONTRAST: 08/09/19 HISTORY: Visual change. Blindness of the left eye. Patient's problem started this morning. FINDINGS: Correlation is made with the CT scan obtained earlier today. There are multiple foci of T2 prolongation of the periventricular and subcortical white matter consis tent with chronic small vessel ischemic disease. The ventricular size is appropriate and the basilar cisterns patent. No restricted diffusion is identified. No evidence of infarct, hemorrhage, mass, mid line shift, or abnormal extra-axial fluid collections are seen. No abnormal postcontrast enhancement is identified. The visualized paranasal sinuses and mastoid air cells are well aerated. IMPRESSION: 1. No evidence of acute intracranial process or mass. 2. Chronic small vessel ischemic disease. POS: [facility]
[2019-08-09] MEDS ORDERED: Ondansetron ODT 4 MG TAB SL PRN (19:13)
[2019-08-09] MEDS ORDERED: Ondansetron PF 4 MG/2 ML Vial IVP PRN ×2 (19:13→19:14)
[2019-08-09] MEDS ORDERED: Labetalol HCl 100 MG/20 ML VIAL SLOW IVP PRN (19:14)
[2019-08-09] MEDS ORDERED: Acetaminophen 500 MG TAB PO PRN (19:14)
[2019-08-09] MEDS ORDERED: Ondansetron ODT 4 MG TAB PO PRN (19:14)
[2019-08-09 19:22] VITALS: BMI 29.1
[2019-08-09] MEDS: Ezetimibe 10 MG TAB PO SCH (22:37)
[2019-08-09] MEDS: Famotidine 20 MG TAB PO SCH (22:37)
[2019-08-09] MEDS: Atorvastatin Calcium 40 MG TAB PO SCH (22:37)
--- NOTE | 2019-08-09 22:57 | HP ---
PRIMARY CARE PROVIDER: Dr. Tapia. CHIEF COMPLAINT: Vision loss. HISTORY OF PRESENT ILLNESS: This is a 73-year-old female, who presented to [facility] room in transfer from Dr. Esquivel's ophthalmology office, where the patient initially presented with sudden loss of vision in the left eye. The patient states this occurred approximately between 8:30 to 9:00 a.m. on 08/09/2019 while at home. The patient denied any trauma injury, unilateral weakness, difficulty with speech, taste, or swallowing. The patient states she has had no similar incidences in the past and denied chemical exposure. The patient states this began spontaneously at which point she called her pullman car clerk office and was told to come in for evaluation. The patient received a brief examination, however, was referred directly to the emergency room for evaluation after concern for central retinal arterial occlusion. The patient underwent CT imaging of the brain in the emergency room showing no acute intracranial process. The patient received aspirin 324 mg x1 dose and underwent subsequent MRI imaging of the brain with contrast showing no evidence of acute intracranial process or mass. Chronic small-vessel ischemic changes were noted. EKG performed in the emergency room showed sinus bradycardia without evidence of atrial fibrillation. The patient describes the vision loss as looking through dirty cloth, but no pain in the orbit. No recent dental work, trauma, submersion or high altitude exposure. PAST MEDICAL HISTORY: 1. Coronary artery disease, status post coronary artery bypass grafting 01/2019. 2. Hyperlipidemia. 3. Hypertension. 4. Anxiety disorder. PAST SURGICAL HISTORY: 1. Status post appendectomy. 2. Status post hysterectomy. 3. Status post cataract removal. 4. Status post cardiac stent placement. 5. Status post coronary artery bypass grafting. CURRENT MEDICATIONS: Based on previous admission 01/2019: 1. Enteric-coated aspirin 81 mg daily. 2. Zetia 10 mg p.o. at bedtime. 3. [place]-3 fatty acids p.o. b.i.d. 4. Metoprolol tartrate 50 mg p.o. daily. 5. Isosorbide mononitrate 30 mg p.o. daily. 6. Citalopram 20 mg p.o. daily. 7. Coenzyme Q10 of 200 mg p.o. daily. 8. Nitrostat 0.4 mg one tab q.5 minutes p.r.n. chest pain. 9. Flonase 1 spray in each naris daily. 10. Olmesartan 40 mg p.o. daily. 11. Omeprazole 20 mg p.o. daily. 12. Magnesium 400 mg p.o. daily. 13. Calcium with vitamin D3 one tablet p.o. daily. ALLERGIES: PENICILLIN, TETANUS, AND CELERY. FAMILY HISTORY: Positive for coronary artery disease and hypertension. SOCIAL HISTORY: Resides in the [facility] area. Retired. Accompanied by her grandson in the hospital. No current alcohol, tobacco, or illicit drug use. REVIEW OF SYSTEMS: CONSTITUTIONAL: Negative for weight loss or gain, ability to conduct usual activities. SKIN: Negative for rash, itching. EYES: Negative for double vision, pain. ENT/MOUTH: Negative for nose bleeding, neck stiffness, pain, tenderness. CARDIOVASCULAR: Negative for palpitations, dyspnea on exertion, orthopnea. RESPIRATORY: Negative for shortness of breath, wheezing, cough, hemoptysis, fever or night sweats. GASTROINTESTINAL: Negative for poor appetite, abdominal pain, heartburn, nausea, vomiting, constipation, or diarrhea. GENITOURINARY: Negative for urgency, frequency, dysuria, nocturia. MUSCULOSKELETAL: Negative for pain, swelling. NEUROLOGIC/PSYCHIATRIC: Negative for anxiety, depression. ALLERGY/IMMUNOLOGIC: Negative for skin rash, bleeding tendency. Otherwise negative except as stated per HPI. PHYSICAL EXAMINATION: VITAL SIGNS: On admission, blood pressure 170/80, pulse 93, respiratory rate 16, temperature 98.5 degrees Fahrenheit, O2 saturation 94% on room air. GENERAL APPEARANCE: This is a 73-year-old female, alert and oriented x3, pleasant, responsive, in no acute distress. HEENT: Right pupil reactive to light and accommodation. Left pupil dilated approximately 6 to 7 mm, minimally reactive to light. Extraocular muscles are intact. No orbital trauma or edema noted. Extraocular muscles intact bilaterally. Nares patent. OP is clear. Teeth in good repair. NECK: Supple. No cervical adenopathy. No thyromegaly. No carotid bruits. No JVD appreciated. Cervical spine with full active and passive range of motion. No meningeal signs noted. CHEST: Lungs are clear to auscultation bilaterally. CARDIOVASCULAR: S1, S2 without noted murmur, rub, or gallop. ABDOMEN: Obese, soft, nontender, and nondistended. Bowel sounds are positive in all 4 quadrants. There is no hepatosplenomegaly. No abdominal bruits. No rebound or guarding appreciated. EXTREMITIES: Warm and dry with fair turgor. No clubbing, cyanosis, or asymmetric edema appreciated. Pulses palpable distally at the dorsalis pedis, posterior tibial, and popliteal arteries bilaterally. Capillary refill less than 2 seconds. NEUROLOGIC: Cranial nerves 2 through 12 are grossly intact. Vision loss in the left eye noted. No other focal or lateralizing signs appreciated. PERTINENT LABORATORY AND X-RAY FINDINGS: Sodium 142, potassium 4.5, chloride 106, CO2 of 31, BUN 12, creatinine 0.78, glucose 108, calcium 8.6. LFTs within normal limits. Troponin I negative x1. CBC showed a white blood cell count of 4.4, hemoglobin 12, hematocrit 37, platelet count 159. PT 13.9, INR 1.1, PTT 31.5. CT of the brain without contrast dated 08/09/2019, showed no acute intracranial process. MRI of the brain dated 08/09/2019, showed chronic ischemic white matter changes without acute process or mass. EKG dated 08/09/2019 by my interpretation shows sinus bradycardia with heart rates in the 50s. Attenuated R-waves noted in the precordial leads. Normal axis. Low voltage tracing. No acute ST-T wave changes appreciated. ASSESSMENT AND PLAN: 1. Acute vision loss of the left eye. The patient will be admitted to the stroke unit. Suspect central retinal arterial occlusion. Continue aspirin 325 mg daily. Check 2D transthoracic echocardiogram and carotid Doppler study to rule out valvular dysfunction or carotid stenosis. Consult Neurology service in the a.m. Check fasting lipid profile in the a.m. 2. Coronary artery disease, chronic and stable. Continue aspirin 325 mg daily. Resume Lipitor 40 mg p.o. at bedtime. 3. Hypertension. Resume home antihypertensive regimen and monitor clinical response. 4. Hyperlipidemia. Resume Lipitor 40 mg p.o. at bedtime. Check fasting lipid profile in the a.m. 5. Prophylaxis. SCDs while in bed. Pepcid 20 mg p.o. b.i.d. 6. Code status is full. Surrogate medical decision maker is patient's grandson. Job ID: [id number]
[2019-08-10 04:46] LABS: Band 3 % (5-11); Eosinophils 1 % (0-10); Hemoglobin 11.7 g/dL (12.0-16.0); Lymphocytes 43 % (21-51); MDiff Complete? YES; Mean Corpuscular HGB CONC 33.6 g/dL (32.0-36.0); Mean Corpuscular Hemoglobin 32.1 pg (27.0-31.0); Mean Corpuscular Volume 95.7 fL (78.0-98.0); Monocytes 9 % (0-10); Neutrophil 43 % (42-75); Platelet Count 144 thou/uL (130-400); Platelet Morphology Comment Appears Adequate; RBC Distribution Width 11.8 % (11.5-14.5); RBC Morphology Normal; Red Blood Cell (RBC) Count 3.65 mill/uL (4.20-5.40); White Blood Cell (WBC) Count 5.2 thou/uL (4.8-10.8)
[2019-08-10 04:52] LABS: Anion Gap 10 mmol/L (10-20); BUN (Urea Nitrogen) 12 mg/dL (9.8-20.1); Calc. Creatinine Clearance 81 mL/min (70-130); Calcium 8.5 mg/dL (7.8-10.44); Carbon Dioxide 30 mmol/L (23-31); Cardiac Risk 2.1 (Less than 4.5); Chloride 106 mmol/L (98-107); Cholesterol 108 mg/dl (< 200 Desired); Estimated GFR-MDRD 78; Glucose 136 mg/dL (83-110); HDL Cholesterol 52 mg/dL (>60 Neg Risk); LDL Cholesterol, Calculated 34 mg/dL; Potassium 3.7 mmol/L (3.5-5.1); Sodium 142 mmol/L (136-145); Triglycerides 112 mg/dL (Less than 150)
[2019-08-10] MEDS: Escitalopram Oxalate 20 mg Tablet PO SCH (08:40)
[2019-08-10] MEDS: Multivitamin W/ Minerals 1 TAB PO SCH (08:40)
[2019-08-10] MEDS: Famotidine 20 MG TAB PO SCH ×2 (08:40→20:28)
[2019-08-10] MEDS: Aspirin 325 mg Enteric Coated Tablet PO SCH (08:40)
[2019-08-10] MEDS: Magnesium Oxide 400 MG TAB PO SCH (08:40)
[2019-08-10] MEDS: Losartan 25 MG TAB PO SCH (08:40)
[2019-08-10] MEDS: Ubidecarenone 50 MG CAP PO SCH (08:40)
[2019-08-10] MEDS ORDERED: Non-Formulary Item 1 EACH (Olmesartan Medoxomil [Olmesartan Medoxomil] 40 MG) PO SCH (09:00)
[2019-08-10] MEDS ORDERED: Iopamidol-370 76% 500 ML 1 ML ONE (10:04)
--- NOTE | 2019-08-10 10:26 | CON ---
DATE OF CONSULTATION: 08/10/2019 CONSULTING PHYSICIAN: Hospitalist Service. IMPRESSION: Probable left central retinal artery occlusion. PLAN: 1. Continue current treatment. 2. Carotid ultrasound. 3. Echocardiogram. 4. The patient will be discharged to her discretion. HISTORY OF PRESENT ILLNESS: Ms. Salazar is a pleasant 73-year-old woman with a past history of hypertension. She was previously taking aspirin 81 mg daily. She developed acute left vision loss. She was seen by Dr. Esquivel, and referred here after about 3 hours of partial blindness of her left eye. Her CT and MRI of the brain were unremarkable. Echocardiogram is pending. No carotid study is pending at this point. PAST MEDICAL HISTORY: Otherwise negative. ALLERGIES: PENICILLIN, TETANUS, AND CELERY. SOCIAL HISTORY: No tobacco or alcohol. FAMILY HISTORY: Noncontributory. MEDICATION LIST: Reviewed. REVIEW OF SYSTEMS: Ten-system review of systems is otherwise negative. PHYSICAL EXAMINATION: VITAL SIGNS: Blood pressure 198/74, pulse 61, respirations 16, and temperature 98.1. GENERAL: She is a well-nourished, elderly lady, in no acute distress. HEENT: Pupils equal. Conjunctivae clear. Oropharynx clear. Cranium, normocephalic and atraumatic. NEUROLOGIC: Visual acuity in the left eye was such that she could make out objects on the television as well as on the clock face. Cranial nerves were intact. Motor exam was without any weakness. Sensations intact. Cerebellar did not show any tremor dysmetria. Gait is normal. LABORATORY STUDIES: Unremarkable CBC, coags, and chemistry panel. Her cholesterol ratio is 2.1. SUMMARY: An elderly lady with acute blindness in the left eye, likely due to central retinal artery occlusion. She may be improving. Her workup is underway. She can be discharged to her discretion. Job ID: [id number]
--- NOTE | 2019-08-10 11:46 | ULT ---
EXAM: Carotid Doppler PROVIDED CLINICAL HISTORY: Left eye blindness COMPARISON: None FINDINGS: Grayscale and color Doppler sonography with spectral analysis was performed of the extracranial carot id system bilaterally. Conspicuous atherosclerotic plaque is seen involving each proximal internal carotid artery. There is elevation of peak systolic velocity within the mid left internal carotid art bekah to 143 cm/s with a corresponding ICA to CCA ratio of 2.2. No evidence for a hemodynamically significant right internal carotid artery stenosis. Antegrade flow is seen in the vertebral arteries. IMPRESSION: Findings compatible with moderate, 50-69%, stenosis involving the left internal carotid artery.
[2019-08-10] MEDS ORDERED: Sodium Chloride 0.9% 500 ML IV SCH (13:45)
[2019-08-10] MEDS ORDERED: Sodium Chloride 0.9% 1,000 ML IV SCH ×2 (14:00)
[2019-08-10] MEDS ORDERED: Metoprolol Tartrate 50 MG TAB PO SCH ×2 (14:15→21:00)
--- NOTE | 2019-08-10 17:01 | CT ---
CTA NECK WITH IV CONTRAST AND 3D POSTPROCESSIN08/10/19 HISTORY: Left eye vision loss. Abnormal carotid duplex ultrasound. FINDINGS: There are calcified plaques in the carotid and vertebrobasilar artery systems bilaterally. There is a pproximately 35% stenosis of the proximal ICAs bilaterally using NASCET criteria. There is good flow in the vertebrobasilar arteries. There is a moderate sized left pleural effusion. There are degenerative changes in the spine. IMPRESSION: Mild stenosis in the proximal ICAs bilaterally. POS: OFF
[2019-08-10] MEDS ORDERED: Labetalol HCl 100 MG/20 ML VIAL SLOW IVP PRN (18:02)
--- NOTE | 2019-08-10 18:10 | PDOC.HOSPP ---
- Subjective Encounter Date: 08/10/19 Encounter Time: 12:00 Subjective: Patient seen and examined for vision loss. No new focal deficits. Left eye vision improving. No new complaints. No overnight events - Objective Vital Signs & Weight: Vital Signs (12 hours) Temp Pulse Pulse Pulse Resp BP BP 08/10/19 16:09 98 F 63 16 08/10/19 12:30 65 77 179/81 H 199/84 H 08/10/19 11:34 98.7 F 65 16 08/10/19 08:00 98.0 F 64 16 BP Pulse Ox 08/10/19 16:09 185/78 H 95 08/10/19 12:30 08/10/19 11:34 176/81 H 95 08/10/19 08:00 186/75 H 92 L Weight Weight 164 lb 6.4 oz Result Diagrams: 08/10/19 04:20 08/10/19 04:20 Radiology Reviewed by me: Yes (MRI - neg) EKG Reviewed by me: Yes (Tele SR) Hospitalist ROS - Review of Systems Respiratory: denies: cough, dry, shortness of breath, hemoptysis, SOB with excertion, pleuritic pain, sputum, wheezing, other Cardiovascular: denies: chest pain, palpitations, orthopnea, paroxysmal noc. dyspnea, edema, light headedness, other Gastrointestinal: denies: nausea, vomiting, abdominal pain, diarrhea, constipation, melena, hematochezia, other - Medication Medications: Active Medications Generic Name Dose Route Start Last Admin Trade Name Freq PRN Reason Stop Dose Admin Aspirin 325 mg 08/10/19 09:00 08/10/19 08:40 Ecotrin PO 325 mg DAILY SOURAV Administration Atorvastatin Calcium 40 mg 08/09/19 21:00 08/09/19 22:37 Lipitor PO 40 mg HS SOURAV Administration Coenzyme Q10 200 mg 08/10/19 09:00 08/10/19 08:40 Coenzyme Q10 PO 200 mg DAILY SOURAV Administration Ezetimibe 10 mg 08/09/19 21:00 08/09/19 22:37 Zetia PO 10 mg HS SOURAV Administration Escitalopram Oxalate 20 mg 08/10/19 09:00 08/10/19 08:40 Lexapro PO 20 mg DAILY SOURAV Administration Famotidine 20 mg 08/09/19 21:00 02/08/20 08:40 Pepcid PO 20 mg BID SOURAV Administration Iron/Minerals/Multivitamins 1 tab 08/10/19 09:00 08/10/19 08:40 Theragran M PO 1 tab DAILY SOURAV Administration Losartan Potassium 100 mg 08/10/19 09:00 08/10/19 08:40 Cozaar PO 100 mg DAILY SOURAV Administration Magnesium Oxide 400 mg 08/10/19 09:00 08/10/19 08:40 Magnesium Oxide PO 400 mg DAILY SOURAV Administration - Exam General Appearance: NAD Neck: no JVD Heart: RRR, no gallops, no rubs, normal peripheral pulses Respiratory: no wheezes, no rales, no ronchi, normal chest expansion Gastrointestinal: non-tender, non-distended, normal bowel sounds, no palpable masses Extremities: no edema Neurological: no new deficit Musculoskeletal: generalized weakness Psychiatric: normal affect, A&O x 3 Hosp A/P - Plan DVT proph w/lovenox Left eye vision loss due to suspected central retinal artery occlusion HTN CAD s/p CBAG HLD Carotid stenosis CKD 2 Chronic Anemia PLAN: Cont ASA 325 mg Start Statins Check CTA neck due to abnormal Carotid doppler Cont Metoprolol Cont Losartan Consider adding Amlodipine
[2019-08-10] MEDS: Atorvastatin Calcium 40 MG TAB PO SCH (20:28)
[2019-08-10] MEDS: Ezetimibe 10 MG TAB PO SCH (20:28)
[2019-08-10] MEDS: Metoprolol Tartrate 50 MG TAB PO SCH (20:29)
--- NOTE | 2019-08-11 00:55 | CON ---
DATE OF CONSULTATION: 08/10/2019 TIME: 4:00 p.m. REASON FOR CONSULTATION: Recent visual loss, left eye. HISTORY OF PRESENT ILLNESS: The patient is a 73-year-old hypertensive woman, who awoke asymptomatically on August 09, 2019. Then, one to two hours later, developed sudden spontaneous patchy loss of vision of the left eye without any other neurologic symptoms. She describes this as similar to the visual aura, which preceded migraine headaches in her distant past. At the time of this exam, the vision is noticeably improved compared to about 30 hours ago. She called her boiling house hand and she was immediately called to the office, where he did a thorough exam and multiple tests. He then made a telephone consultation with Dr. Burke Esquivel, Retinologist, and his recommendation was for her to proceed to the hospital, where further testing could be done. She went to the emergency room, where a brain CT was normal. Subsequent brain MRI was also normal. CTA of her carotids had shown 35% stenosis of the proximal ICAs bilaterally. PAST MEDICAL HISTORY: Includes hypertension, hyperlipidemia, and triple coronary artery bypass graft in December 2018. She has had bilateral cataract surgery and intraocular lens. The admission history and physical has been reviewed. PHYSICAL EXAMINATION: On examination, visual acuity with her current reading glasses is J-2 for the right eye and J-5 for the left eye. Intra-ocular pressure with Jg-Pen was 10 mmHg right and 18 mmHg left. Her ocular motility was aligned and full. Pupils are about 4 mm, equal, reactive to light, and not showing an afferent pupillary defect. The pupils were dilated with Frank-Synephrine and Cyclomydril. She has posterior chamber intra-ocular lenses and clear capsules. Examination of the mid peripheral retina is normal. The optic nerves are flat. The right nerve has normal color. The left nerve has some borderline pallor of the temporal rim. The vessel shows some increased areas of sclerotic changes. There is no retinal hemorrhage, local edema, or a sawant red spot. This most likely has been a small plaque breaking loose from her carotid artery and causing a temporary central retinal artery occlusion without severe permanent damage. Job ID: [id number]
[2019-08-11 07:50] VITALS: BP 162/70; TEMP 98
[2019-08-11] MEDS ORDERED: Enoxaparin Sodium 40 MG/0.4 ML SYRINGE SC SCH (09:00)
[2019-08-11] MEDS: Famotidine 20 MG TAB PO SCH (09:12)
[2019-08-11] MEDS: Aspirin 325 mg Enteric Coated Tablet PO SCH (09:12)
[2019-08-11] MEDS: Multivitamin W/ Minerals 1 TAB PO SCH (09:13)
[2019-08-11] MEDS: Metoprolol Tartrate 50 MG TAB PO SCH (09:13)
[2019-08-11] MEDS: Escitalopram Oxalate 20 mg Tablet PO SCH (09:13)
[2019-08-11] MEDS: Losartan 25 MG TAB PO SCH (09:13)
[2019-08-11] MEDS: Magnesium Oxide 400 MG TAB PO SCH (09:13)
[2019-08-11] MEDS: Ubidecarenone 50 MG CAP PO SCH (09:14)
--- NOTE | 2019-08-11 12:02 | DIS ---
DATE OF ADMISSION: 08/09/2019 DATE OF DISCHARGE: 08/11/2019 DISCHARGE DISPOSITION: Home. FOLLOWUP: 1. Follow up with primary care physician, Dr. Yuri Tapia in 1 week. 2. Follow up with Dr. Lakhwinder German in 1 week. DISCHARGE MEDICATIONS: Aspirin dose was increased to 325 mg daily. All other home medications were left unchanged. The patient was seen and examined on the day of discharge. Denies any new complaints. No new focal deficit. Left eye visual deficit is slowly improving. INPATIENT CONSULTANTS: 1. Neurology, Dr. Cordova. 2. Ophthalmology, Dr. Douglas. DIAGNOSTIC TESTS: 1. CT scan of the brain was negative for acute CVA. MRI of the brain was negative for acute findings. It showed chronic small-vessel ischemic changes. 2. Carotid Doppler showed suspected moderate stenosis of the left internal carotid artery. 3. CT angiogram of the neck showed approximately 35% stenosis in bilateral internal carotid artery. 4. Echocardiogram was technically limited. It showed moderate mitral regurgitation with mild tricuspid regurgitation. Ejection fraction appeared to be in the lower limit of normal. Repeat echo as outpatient is recommended. BRIEF HOSPITAL COURSE: The patient is a 73-year-old female with coronary artery disease, status post CABG; hypertension; and hyperlipidemia; presented to the hospital with sudden loss of vision in the left eye. This happened approximately between 08:30 to 09:00 a.m. on August. Please refer to the history and physical by Dr. Brady Woodson for further details. The patient was admitted to the hospital with a diagnosis of suspected CVA. A stroke workup was essentially negative. She was evaluated by Neurology and Ophthalmology, Dr. Du Douglas. Workup was consistent with possible left central retinal artery occlusion. She underwent a CT angiogram of the neck that showed mild stenosis. She will probably need a repeat echocardiogram as outpatient due to poor images. She has been cleared by consultants for discharge. Aspirin dose was increased to 325 per Neurology recommendation. The patient was advised to follow up with Neurology and her primary environmental service aide, Dr. Lakhwinder German as outpatient. FINAL DIAGNOSES: 1. Left eye vision loss due to suspected central retinal artery occlusion, slowly improving. 2. Coronary artery disease, status post CABG in 2019. 3. Hypertension. 4. Hyperlipidemia. 5. Mild carotid stenosis bilaterally. 6. Chronic kidney disease, stage 2. 7. Chronic anemia. The patient understands the above plan of care. Job ID: [id number]
== END 2019-08-11 10:09 | disposition home or self-care (01) | DRG 123 ==
LOC: ERS 12:12 → 2SE 18:41
PROVIDERS: ADMIT Family Medicine; ATTEND Family Medicine
DX: H34.12 Central retinal artery occlusion, left eye (principal); I13.0 Hypertensive heart and chronic kidney disease with heart failure and stage 1 through stage 4 chronic kidney disease, or unspecified chronic kidney disease; I25.10 Atherosclerotic heart disease of native coronary artery without angina pectoris; E78.5 Hyperlipidemia, unspecified; F41.9 Anxiety disorder, unspecified; N18.2 Chronic kidney disease, stage 2 (mild); D63.1 Anemia in chronic kidney disease; I65.23 Occlusion and stenosis of bilateral carotid arteries; F20.9 Schizophrenia, unspecified; F31.9 Bipolar disorder, unspecified; I50.9 Heart failure, unspecified; Z90.710 Acquired absence of both cervix and uterus; Z90.49 Acquired absence of other specified parts of digestive tract; Z95.5 Presence of coronary angioplasty implant and graft; Z95.1 Presence of aortocoronary bypass graft; Z79.82 Long term (current) use of aspirin; Z79.899 Other long term (current) drug therapy; Z88.0 Allergy status to penicillin; Z88.7 Allergy status to serum and vaccine; I25.2 Old myocardial infarction
CPT/HCPCS: 36415; 70450; 70498; 70553; 80048; 80053; 80061; 84484; 85007; 85025; 85027; 85610; 85652; 85730; 93005; 93306; 93880; A9579; Q9967

== ENCOUNTER 2020-06-04 12:57 | Outpatient (CLI) | payer MEDICARE, BC ==
--- NOTE | 2020-06-04 14:02 | CT ---
CT pulmonary lung scan without IV contrast INDICATION: Lung cancer screening protocol; personal history of nicotine dependence; former smoker fo r 40 years; smoked one half pack per day; quit 9 years ago COMPARISON: None FINDINGS: LUNGS: Nodules\mass: No suspicious nodule demonstrated. Emphysema: Moderate centrilobular emphysema Additional findings: Postsurgical change of a prior CABG. Mediastinum: There are coronary artery and thoracic aortic ossifications. There are calcified lymph n odes within the mediastinum. Upper abdomen: There are severe vascular calcifications seen involving the visualized vasculature. Adrenal glands ap pear within normal limits. Osseous structures: There is diffuse osteopenia. No acute fracture or subluxation demonstrated. There is scattered degenerative and osteoarthritic change present.. IMPRESSION: Lung-RADS Category 2: Benign- Continue annual screening with LDCT in 12 months Category S: None. Category C: Not applicable.
--- NOTE | 2020-06-04 14:09 | BD ---
Exam: DEXA Bone Density 06/04/20 HISTORY: Postmenopausal screening for osteoporosis. FINDINGS: Lumbar Spine: BMD (g/cm2) T-SCORE Z-SCORE L1 1.006 0.1 2.3 L2 1.067 0.4 2.7 L3 0.979 -1.0 1.5 L4 0.822 -2.2 0.4 L1-L4 0.956 -0.8 1.5 Femoral Neck: 0.714 -1.2 0.8 Total Femur: 0.873 -0.6 1.2 The ten year fracture risk for a major osteoporotic fracture is 9.6% and for hip fracture is 1.5%. Impression: Osteopenia. POS: AH
--- NOTE | 2020-06-04 14:11 | MMO ---
Bilateral MAMMO Bilat Screen [facility]. CLINICAL HISTORY: Patient is 74 years old and is seen for screening. The patient has the following family history of breast cancer: paternal aunt, malignant (generic). The patient has no personal history of cancer. VIEWS: The views performed were: bilateral craniocaudal with tomosynthesis and bilateral mediolateral oblique with tomosynthesis. This study has been interpreted with the assistance of computer-aided detection. MAMMOGRAM FINDINGS: There are scattered fibroglandular densities. Finding 1: There is an equal density, round mass measuring 8 millimeters with spiculated margins seen in the middle outer region of the right breast. Finding 2: There is a focal asymmetry with associated architectural distortion seen in the middle outer region of the left breast. Finding 3: There are benign appearing calcifications seen in both breasts. IMPRESSION: FINDING 1: MASS IN THE RIGHT BREAST REQUIRES ADDITIONAL EVALUATION. AN ULTRASOUND EXAM IS RECOMMENDED. FINDING 2: FOCAL ASYMMETRY IN THE LEFT BREAST REQUIRES ADDITIONAL EVALUATION. AN ULTRASOUND EXAM IS RECOMMENDED. THE RESULTS OF THIS EXAM WERE SENT TO THE PATIENT. ACR BI-RADS Category 0 - Incomplete: Need additional imaging evaluation. [facility] will notify the patient of the need for additional imaging services. MAMMOGRAPHY NOTE: 1. A negative mammogram report should not delay a biopsy if a dominant of clinically suspicious mass is present. 2. Approximately 10% to 15% of breast cancers are not detected by mammography. 3. Adenosis and dense breasts may obscure an underlying neoplasm. Reported by: RAMOS REYES MD Electonically Signed: [id number]
== END 2020-06-04 12:58 | disposition home or self-care (01) ==
LOC: BICCT 12:57
PROVIDERS: ATTEND Family Medicine
DX: Z12.31 Encounter for screening mammogram for malignant neoplasm of breast (principal); Z13.820 Encounter for screening for osteoporosis; Z12.2 Encounter for screening for malignant neoplasm of respiratory organs; Z78.0 Asymptomatic menopausal state; N63.10 Unspecified lump in the right breast, unspecified quadrant; M85.89 Other specified disorders of bone density and structure, multiple sites; N64.89 Other specified disorders of breast; Z87.891 Personal history of nicotine dependence
CPT/HCPCS: 77063; 77067; 77080; G0297

== ENCOUNTER 2020-06-10 07:38 | Outpatient (CLI) | payer MEDICARE, BC ==
--- NOTE | 2020-06-10 09:18 | ULT ---
LIMITED RIGHT BREAST ULTRASOUND LIMITED LEFT BREAST ULTRASOUND: HISTORY: Abnormal mammograms of 06/04/2020. FINDINGS: Sonographic evaluation of the 10 o'clock position of the right breast demonstrates an 8 x 7 6 cm shad owing solid mass, 3 cm from the nipple and corresponding to the mammographic finding. There is an 11 x 6 x 21 mm lymph node in the right axilla. Sonographic evaluation of the left breast at the 2 o'clock position demonstrates an irregular shadowi ng mass measuring 9 x 9 x 11 mm corresponding to the region of focal asymmetry and distortion on the mammogram. There are a couple of lymph nodes in the left axilla measuring 18 x 11 mm and 13 x 7 mm respectively. IMPRESSION: BIRADS category 4 - suspicious abnormality. Ultrasound-guided biopsy of the bilateral breast masses is recommended. Discussed in person with the patient at 8:14 a.m. and over the telephone with Dr. Tapia at 8:22 a.m . CODE CR POS: OFF
--- NOTE | 2020-06-10 09:50 | ULT ---
LIMITED RIGHT BREAST ULTRASOUND LIMITED LEFT BREAST ULTRASOUND: HISTORY: Abnormal mammograms of 06/04/2020. FINDINGS: Sonographic evaluation of the 10 o'clock position of the right breast demonstrates an 8 x 7 x 6 mm sh adowing solid mass, 3 cm from the nipple and corresponding to the mammographic finding. There is an 11 x 6 x 21 mm lymph node in the right axilla. Sonographic evaluation of the left breast at the 2 o'clock position demonstrates an irregular shadowi ng mass measuring 9 x 9 x 11 mm corresponding to the region of focal asymmetry and distortion on the mammogram. There are a couple of lymph nodes in the left axilla measuring 18 x 11 mm and 13 x 7 mm respectively. IMPRESSION: BIRADS category 4 - suspicious abnormality. Ultrasound-guided biopsy of the bilateral breast masses is recommended. Discussed in person with the patient at 8:14 a.m. and over the telephone with Dr. Taipa at 8:22 a.m . CODE CR POS: OFF
== END 2020-06-10 07:39 | disposition home or self-care (01) ==
LOC: BICULT 07:38
PROVIDERS: ATTEND Family Medicine
DX: R92.8 Other abnormal and inconclusive findings on diagnostic imaging of breast (principal); N63.10 Unspecified lump in the right breast, unspecified quadrant

== ENCOUNTER → 2020-06-23 | Day surgery (SDC) | payer MEDICARE, BC ==
--- NOTE | 2020-06-23 14:37 | MMO ---
FILMS COMPARED: The present examination has been compared to prior imaging studies performed at [facility] on 06/04/2020, 06/10/2020 and 06/23/2020. MAMMOGRAM FINDINGS: There are scattered fibroglandular densities. Clip in good position in mass. IMPRESSION: FINDING IN THE LEFT BREAST IS CONFIRMED UTILIZING POST PROCEDURE MAMMOGRAM. Reported by: KENRICK SHAH MD Electonically Signed: [id number]
--- NOTE | 2020-06-23 14:38 | MMO ---
FILMS COMPARED: The present examination has been compared to prior imaging studies performed at [facility] on 06/04/2020, 06/10/2020 and 06/23/2020. MAMMOGRAM FINDINGS: There are scattered fibroglandular densities. Clip in good position in mass mid outer breast. IMPRESSION: FINDING IN THE RIGHT BREAST IS CONFIRMED UTILIZING POST PROCEDURE MAMMOGRAM. Reported by: KENRICK SHAH MD Electonically Signed: [id number]
--- NOTE | 2020-06-23 15:02 | ULT ---
ULTRASOUND GUIDED RIGHT BREAST BIOPSY: 06/23/20 HISTORY: Hypoechoic right breast mass measuring approximately 8 mm in size located at the 10 o'clock position 4 cm from the nipple which is recommended for biopsy. After informed consent was obtained, the patient was prepped and draped in the normal sterile fashion . Local anesthesia was obtained with 1% Xylocaine mixed with sodium bicarb. Small skin incision was m devi with a #11 scalpel blade. Subsequent a series of four 14 gauge core biopsies were performed of th e lesion. The patient tolerated the procedure well. Subsequently a biopsy clip was deployed. The post biopsy mammogram showed the clip to have been deplo yed within the lesion. There were no immediate complications of the procedure. IMPRESSION: Ultrasound guided biopsy of right breast lesion as above. POS: OFF
--- NOTE | 2020-06-23 15:18 | ULT ---
ULTRASOUND GUIDED LEFT BREAST BIOPSY: HISTORY: An irregular hypoechoic mass seen at the 2 o'clock position of the left breast approximately 6 cm fro m the nipple for which biopsy is recommended. This lesion measures approximately 2 cm in size. After informed consent was obtained, the patient was prepped and draped in normal sterile fashion. L ocal anesthesia was obtained. Local anesthesia was obtained with 1% Xylocaine mixed with sodium bica rb. A small skin incision was made with a #11 scalpel blade. A 14-gauge core biopsy gun was used fo r a total of 4 biopsies. After the biopsy, a biopsy clip was deployed. The post biopsy mammogram showed good positioning of t he clip. There are no immediate complications of the procedure. IMPRESSION: Ultrasound-guided biopsy of left breast mass. A total of 4 core biopsies using a 14-gauge needle herman e performed. POS: OFF
== END ==
LOC: BICULT 12:52
PROVIDERS: ATTEND Family Medicine
PROC: 0H9V3ZX Drainage of Bilateral Breast, Percutaneous Approach, Diagnostic (ICD-10-PCS; principal; 2020-06-23)
DX: C50.411 Malignant neoplasm of upper-outer quadrant of right female breast (principal); C50.412 Malignant neoplasm of upper-outer quadrant of left female breast; Z88.0 Allergy status to penicillin; Z88.7 Allergy status to serum and vaccine; Z91.018 Allergy to other foods
CPT/HCPCS: 19083; 88305; 88341; 88342

== ENCOUNTER 2020-07-15 08:09 | Outpatient (CLI) | payer MEDICARE, BC ==
[2020-07-15 17:25] LABS: SARS-CoV-2 MS2 Positive; SARS-CoV-2 N Gene Negative; SARS-CoV-2 S Gene Negative; SARS-CoV-2 by NAA Not Detected (NotDetected); SARS-CoV-2 orf1ab Negative
== END 2020-07-15 08:10 | disposition home or self-care (01) ==
LOC: LABBT 08:09
PROVIDERS: ATTEND Surgery
DX: Z01.812 Encounter for preprocedural laboratory examination (principal); C50.911 Malignant neoplasm of unspecified site of right female breast; C50.912 Malignant neoplasm of unspecified site of left female breast; Z20.822 Contact with and (suspected) exposure to COVID-19
CPT/HCPCS: U0003; U0005; 87635

== ENCOUNTER 2020-07-20 07:28 | Day surgery (SDC) | payer MEDICARE, BC ==
[2020-07-16 11:20] VITALS: BMI 31.0
[2020-07-20] MEDS ORDERED: PHENYLEPHRINE-NS 100 MCG/ML 10 ML SYRINGE ONE ×2 (08:52→12:40)
[2020-07-20] MEDS ORDERED: ePHEDrine 50 MG/ML VIAL ONE (08:52)
[2020-07-20] MEDS ORDERED: Dexamethasone 20 MG/5 ML VIAL ONE (08:52)
[2020-07-20] MEDS ORDERED: Rocuronium Bromide 10 MG/ML (10ML VIAL) ONE (08:52)
[2020-07-20] MEDS ORDERED: Ondansetron PF 4 MG/2 ML Vial ONE (08:52)
[2020-07-20] MEDS ORDERED: PROPOFOL 200 MG/20 ML VIAL ONE (08:52)
[2020-07-20] MEDS ORDERED: Ketorolac Tromethamine 30 MG/ML VIAL ONE (08:52)
[2020-07-20] MEDS ORDERED: Glycopyrrolate 0.2 MG/ML 5 ML SYRINGE ONE (08:52)
--- NOTE | 2020-07-20 10:15 | NM ---
Lymphoscintigraphy bilateral breasts HISTORY: Bilateral breast cancer. FINDINGS: A total volume of 1 cc containing 411 mCi technetium 99m sulfur filtered sulfur colloid was injected into the periareolar skin of the right breast at the 12, 3, 6, and 9:00 positions. Imaging was performed, showing accumulation of radiotracer in a node at the axillary tail of the righ t breast. Skin was over the sentinel node marked. A total volume of 1 cc containing 393 mCi technetium 99m filtered sulfur colloid was then injected in to the periareolar skin of the left breast at the 12:00, 3, 6, and 9:00 positions. Imaging was performed, showing uptake of radiotracer at a sentinel node at the right axilla. Skin overlying the n ode was marked. Patient tolerated the procedure well and was transferred to day surgery in good condition. IMPRESSION : Technically successful lymphoscintigraphy revealing sentinel nodes of each breast.
[2020-07-20] MEDS ORDERED: Midazolam HCl 2 mg/2 ml Vial ONE (10:24)
[2020-07-20] MEDS ORDERED: Fentanyl 100 MCG/2 ML VIAL ONE ×3 (10:24→16:09)
[2020-07-20] MEDS ORDERED: Methylene Blue 50 MG/10 ML AMPUL ONE (11:49)
[2020-07-20] MEDS ORDERED: Levofloxacin 500 mg/D5W 100 ml Premix Bag ONE (11:59)
[2020-07-20] MEDS ORDERED: Phenylephrine 10 MG/ML VIAL ONE (12:42)
[2020-07-20] MEDS ORDERED: Albumin 5% 0 ML ONE (13:56)
[2020-07-20] MEDS ORDERED: Albumin 5% 500 ML ONE (13:57)
[2020-07-20] MEDS ORDERED: Promethazine HCl 25 MG/ML VIAL SLOW IVP PRN (15:29)
[2020-07-20] MEDS ORDERED: Promethazine HCl 25 MG/ML VIAL IM PRN ×2 (15:29→18:32)
[2020-07-20] MEDS ORDERED: Ondansetron HCl/PF 4 MG/2 ML Vial IVP PRN (15:29)
[2020-07-20] MEDS ORDERED: Morphine 4 MG/ML VIAL SLOW IVP PRN (18:32)
[2020-07-20] MEDS ORDERED: hydrALAZINE 20 MG/ML VIAL SLOW IVP PRN (18:32)
[2020-07-20] MEDS ORDERED: Dextrose 50% Abboject 50 ML SYRINGE SLOW IVP PRN (18:32)
[2020-07-20] MEDS ORDERED: Dextrose 5% in Water 1,000 ML IV PRN (18:32)
[2020-07-20] MEDS ORDERED: Ondansetron PF 4 MG/2 ML Vial IVP PRN (18:32)
[2020-07-20] MEDS ORDERED: HYDROcodone/Acetaminophen 7.5/325 mg Tablet PO PRN (18:32)
[2020-07-20] MEDS ORDERED: Morphine 2 MG/ML VIAL SLOW IVP PRN (18:32)
[2020-07-20] MEDS ORDERED: Ezetimibe 10 MG TAB PO SCH (21:00)
[2020-07-20] MEDS ORDERED: Atorvastatin Calcium 40 MG TAB PO SCH (21:00)
[2020-07-20] MEDS: Famotidine 20 MG TAB PO SCH (21:00)
[2020-07-20] MEDS: Carvedilol 3.125 MG TAB PO SCH ×2 (21:00→21:59)
[2020-07-20] MEDS: Sodium Chloride 0.9% 1,000 ML IV SCH (21:01)
[2020-07-20] MEDS: HYDROcodone/Acetaminophen 7.5/325 mg Tablet PO PRN (21:59)
--- NOTE | 2020-07-21 05:50 | PDOC.GSPN ---
Surgery Progress Note: Subj - Subjective Patient reports: no new complaints, pain well controlled Narrative: Ms. Salazar is a 74-year-old female who is post op day 1 for a bilateral mastectomy. She reports only mild axillary and chest wall pain, but this is well controlled with pain medication. She only noted one episode of feeling light headed and breaking out in a cold sweat when getting up to use the bathroom, but this passed. Overall, she reports doing well and is ready to go home. Surgery Progress Note: Obj - Vital signs Vital signs: Vital Signs - Most Recent Temp Pulse Resp BP Pulse Ox 98.1 F 81 16 127/59 L 98 07/21/20 04:38 07/21/20 04:38 07/21/20 04:38 07/21/20 04:38 07/21/20 04:38 - Physical Exam General: no distress, well developed, well nourished Cardiovascular: regular rate and rhythm Respiratory: clear to auscultation, breath sounds present Wound: dressing clean,dry,intact, healing well, drainage Surgery Progress Note: Results - Labs Result Diagrams: 07/21/20 05:50 Surgery Progress Note: A/P - Problem (1) S/P bilateral mastectomy Current Visit: Yes Code(s): Z90.13 - ACQUIRED ABSENCE OF BILATERAL BREASTS AND NIPPLES Status: Acute - Plan Plan: Pain well controlled with medication. She is doing well. Will encourage her to eat and ambulate as tolerated, and she will likely be discharged later today. Addendum - Physician - Physician Attestation Date/Time: 07/21/20 0403 I personally performed or re-performed the physical examination and medical decision making. I have verified all student documentation or findings, including history, physical exam and/or medical decision making.
[2020-07-21] MEDS: HYDROcodone/Acetaminophen 7.5/325 mg Tablet PO PRN ×2 (05:52→12:41)
[2020-07-21 08:43] LABS: #Lymphocytes 1.2 thou/uL (1.20-3.40); #Monocytes 0.6 thou/uL (0.11-0.59); #Neutrophils 5.7 thou/uL (1.40-6.50); %Basophils 0.2 % (0.0-1.0); %Eosinophils 0.2 % (0.0-10.0); %Lymphocytes 15.5 % (21.0-51.0); %Monocytes 8.2 % (0.0-10.0); Hemoglobin 7.9 g/dL (12.0-16.0); MDiff Complete? YES; Mean Corpuscular HGB CONC 32.8 g/dL (32.0-36.0); Mean Corpuscular Hemoglobin 31.1 pg (27.0-31.0); Mean Corpuscular Volume 94.7 fL (78.0-98.0); Mean Platelet Volume 6.8 fL (7.4-10.4); Platelet Count 111 thou/uL (130-400); Platelet Morphology Comment Appears Decreased; Polychromasia SLIGHT = 2-3 cells (100X) (0-2/hpf); RBC Distribution Width 10.8 % (11.5-14.5); Red Blood Cell (RBC) Count 2.53 mill/uL (4.20-5.40); White Blood Cell (WBC) Count 7.5 thou/uL (4.8-10.8)
[2020-07-21] MEDS ORDERED: Losartan 25 MG TAB PO SCH (09:00)
[2020-07-21] MEDS ORDERED: Fluticasone Propionate Nasal Spray 16 gm Bottle NASAL SCH (09:00)
[2020-07-21] MEDS ORDERED: Escitalopram Oxalate 20 mg Tablet PO SCH (09:00)
[2020-07-21] MEDS: Famotidine 20 MG TAB PO SCH (09:03)
[2020-07-21] MEDS: Carvedilol 3.125 MG TAB PO SCH (09:05)
--- NOTE | 2020-07-21 11:27 | OP ---
DATE OF PROCEDURE: 07/20/2020 PREOPERATIVE DIAGNOSIS: Bilateral breast cancer, clinical stage right T1N0Mx, left T1N0Mx. POSTOPERATIVE DIAGNOSIS: Bilateral breast cancer, clinical stage right T1N0Mx, left T1N0Mx. PROCEDURES: 1. Bilateral simple mastectomy. 2. Bilateral deep axillary node biopsy (sentinel node protocol). ANESTHESIA: General. ESTIMATED BLOOD LOSS: 300 mL. COMPLICATIONS: None. FINDINGS: Bilateral breast marked with 2 short superior, 1 long lateral, and sent to Path for final diagnosis. Bilateral sentinel nodes sent in formalin. TECHNIQUE: The patient had preop lymphoscintigraphy. She was taken to the operating room and laid supine on the operating room table. After general anesthetic was obtained, an incision was made in the bilateral axillary region. Cautery was dissected down through the clavipectoral fascia. Area of increased uptake was obtained using the Neoprobe and the left and the right and a single lymph node on each side was removed with high counts on the back table. The background count dropped to near zero. These wounds were left open to be incorporated in the mastectomy incision. The patient had large breast with large lateral skin crease and so a large elliptical incision was made with mirror incisions bilateral to incorporate the breast in the axillary fold. Flaps were raised superior to clavicle, medial to sternum, inferior to inframammary fold, laterally to latissimus dorsi muscle. The bilateral breasts were removed from the chest wall with the pectoralis fascia leaving the muscle intact underneath. Meticulous hemostasis was obtained. The bilateral breasts were each marked with 2 short superior, 1 long lateral, and sent separate to path for final diagnosis. The bilateral breast cavities were irrigated. Two 19 round drains were brought out through separate stab incision on each side and sewn in place using silk suture. The bilateral breasts were closed using 3-0 Vicryl interrupted, running 4-0 Monocryl, and Steri-Strips. Eusebio wrap was used to wrap the chest over fluffs. The patient was sent to Recovery in stable condition. All instrument counts, needle counts, and lap counts were correct. Job ID: [id number]
[2020-07-21 12:09] VITALS: BP 125/80; TEMP 98
[2020-07-21] MEDS: Sodium Chloride 0.9% 1,000 ML IV SCH (13:19)
== END 2020-07-21 13:57 | disposition home or self-care (01) ==
LOC: SDC 07:28 → SURG B 15:06 → SDC 07-21 13:57
PROVIDERS: ATTEND Surgery
PROC: 0HBV0ZZ Excision of Bilateral Breast, Open Approach (ICD-10-PCS; principal; 2020-07-20)
PROC: 07B50ZX Excision of Right Axillary Lymphatic, Open Approach, Diagnostic (ICD-10-PCS; 2020-07-20)
PROC: 07B60ZX Excision of Left Axillary Lymphatic, Open Approach, Diagnostic (ICD-10-PCS; 2020-07-20)
DX: C50.411 Malignant neoplasm of upper-outer quadrant of right female breast (principal); C50.412 Malignant neoplasm of upper-outer quadrant of left female breast; I10 Essential (primary) hypertension; I25.10 Atherosclerotic heart disease of native coronary artery without angina pectoris; Z17.0 Estrogen receptor positive status [ER+]; Z87.891 Personal history of nicotine dependence; Z79.82 Long term (current) use of aspirin; Z79.899 Other long term (current) drug therapy; Z88.0 Allergy status to penicillin; Z88.7 Allergy status to serum and vaccine; Z91.018 Allergy to other foods; Z95.1 Presence of aortocoronary bypass graft
CPT/HCPCS: 19303; 38525; 78195; 85025; A9541; P9045; Q9968; 36415; 88307; 88342; J0690; J1100; J1885; J1956; J2250; J2370; J2405; J2704; J3010; J3490

== ENCOUNTER → 2020-09-09 | Day surgery (SDC) | payer MEDICARE, BC | LOC: SPEC 08:09 | PROVIDERS: ATTEND Internal Medicine Hematology & Oncology | PROC: 02HV33Z Insertion of Infusion Device into Superior Vena Cava, Percutaneous Approach (ICD-10-PCS; principal; 2020-09-09) | PROC: B5181ZA Fluoroscopy of Superior Vena Cava using Low Osmolar Contrast, Guidance (ICD-10-PCS; 2020-09-09) | DX: C50.411 Malignant neoplasm of upper-outer quadrant of right female breast (principal); C50.412 Malignant neoplasm of upper-outer quadrant of left female breast; Z88.0 Allergy status to penicillin; Z88.7 Allergy status to serum and vaccine; Z91.018 Allergy to other foods | CPT/HCPCS: 36569 ==

== ENCOUNTER 2020-09-21 14:52 | Outpatient (CLI) | payer MEDICARE, BC ==
[2020-09-22 04:20] LABS: SARS-CoV-2 PCR by NAA Not Detected (NotDetected)
== END 2020-09-21 14:53 | disposition home or self-care (01) ==
LOC: LABBT 14:52
PROVIDERS: ATTEND Surgery
DX: C50.919 Malignant neoplasm of unspecified site of unspecified female breast (principal); Z20.822 Contact with and (suspected) exposure to COVID-19
CPT/HCPCS: U0003; U0005; 87635

== ENCOUNTER 2020-09-24 05:58 | Day surgery (SDC) | payer MEDICARE, BC ==
[2020-09-23 11:18] VITALS: BMI 27.9
[2020-09-24] MEDS ORDERED: Lidocaine 1% w/Epinephrine 1:100K 20 ML VIAL ONE (06:41)
[2020-09-24] MEDS ORDERED: Bupivacaine 0.25% HCL 30 ML VIAL ONE (06:41)
[2020-09-24] MEDS ORDERED: Lidocaine 2% PF 5 ML VIAL ONE (06:44)
[2020-09-24] MEDS ORDERED: Clindamycin/D5W 900 mg/50 ml Premix Bag ONE (06:55)
[2020-09-24] MEDS ORDERED: Levofloxacin 500 mg/D5W 100 ml Premix Bag ONE (06:55)
[2020-09-24] MEDS ORDERED: Famotidine/PF 20 mg/2ml Vial ONE (07:10)
[2020-09-24] MEDS ORDERED: Fentanyl 100 MCG/2 ML VIAL ONE (07:10)
[2020-09-24] MEDS ORDERED: Ondansetron HCl/PF 4 MG/2 ML Vial IVP PRN (07:13)
[2020-09-24] MEDS ORDERED: Dexamethasone 20 MG/5 ML VIAL ONE (07:42)
[2020-09-24] MEDS ORDERED: PROPOFOL 200 MG/20 ML VIAL ONE (07:42)
[2020-09-24] MEDS ORDERED: Ondansetron PF 4 MG/2 ML Vial ONE (07:42)
[2020-09-24] MEDS ORDERED: PHENYLEPHRINE-NS 100 MCG/ML 10 ML SYRINGE ONE (07:42)
[2020-09-24] MEDS ORDERED: Lidocaine 1% PF 5 ML VIAL ONE ×2 (07:42)
[2020-09-24] MEDS ORDERED: ePHEDrine 50 MG/ML VIAL ONE (07:42)
== END 2020-09-24 10:25 | disposition home or self-care (01) ==
LOC: SDC 05:58
PROVIDERS: ATTEND Surgery
PROC: 02HV33Z Insertion of Infusion Device into Superior Vena Cava, Percutaneous Approach (ICD-10-PCS; principal; 2020-09-24)
PROC: 0HQ5XZZ Repair Chest Skin, External Approach (ICD-10-PCS; 2020-09-24)
DX: C50.911 Malignant neoplasm of unspecified site of right female breast (principal); I10 Essential (primary) hypertension; I25.10 Atherosclerotic heart disease of native coronary artery without angina pectoris; J30.2 Other seasonal allergic rhinitis; Z79.899 Other long term (current) drug therapy; Z87.891 Personal history of nicotine dependence; Z88.0 Allergy status to penicillin; Z88.7 Allergy status to serum and vaccine; Z91.018 Allergy to other foods
CPT/HCPCS: 13160; 36561; 71045; 88305; C1788; J1100; J1642; J1956; J2001; J2405; J2704; J3010; J3490; S0020; S0028

== ENCOUNTER 2025-04-25 13:58 | Outpatient (CLI) | payer MEDICARE | END 2025-04-25 13:59 | disposition home or self-care (01) | LOC: SCSBT 13:58 | PROVIDERS: ATTEND Internal Medicine Hematology & Oncology | DX: M81.8 Other osteoporosis without current pathological fracture (principal); C50.411 Malignant neoplasm of upper-outer quadrant of right female breast; C50.412 Malignant neoplasm of upper-outer quadrant of left female breast; D50.0 Iron deficiency anemia secondary to blood loss (chronic); M85.851 Other specified disorders of bone density and structure, right thigh; M85.852 Other specified disorders of bone density and structure, left thigh | CPT/HCPCS: 77080 ==